=== PATIENT | female | born 1955 | race African-American/Black ===

== ENCOUNTER 2019-01-14 08:15 | Inpatient (IN) ==
[2019-01-14] MEDS ORDERED: DUONEB (A & A) INH ONE (09:38)
[2019-01-14] MEDS ORDERED: LASIX IV ONE (09:38)
[2019-01-14 10:00] LABS: BASO# 0.04 X1000 (0.0-0.2); BASO% 0.3 % (0.0-0.8); EOS# 0.89 X1000 (0.0-0.7); EOS% 7.5 % (0.0-10.0); HEMATOCRIT 46.4 % (37.0-47.0); HEMOGLOBIN 14.8 g/dL (12.0-16.0); IMM GRAN# 0.03 X1000 (0.0-0.04); IMM GRAN% 0.3 % (0.0-0.5); LYMPH% 15.9 % (20.5-51.1); MCHC 31.9 g/dL (33-37); MCV 87.7 FL (81-99); MONO# 0.95 X1000 (0.11-0.59); MPV 11.7 FL (7.4-10.4); NEUT# 8.12 X1000 (1.4-6.5); PLT 261 X1000 (130-400); RBC 5.29 XMIL (4.2-5.4); WBC 11.93 X1000 (4.8-10.8)
--- NOTE | 2019-01-14 10:07 | Diag Imaging Result Doc PS360 ---
CHEST-1 VIEW - 01/14/2019 INDICATION: dyspnea COMPARISON: 07/18/2018 FINDINGS: There is cardiomegaly and pulmonary vascular congestion. There is some hazy interstitial infiltrates centrally compatible with pulmonary edema. No large pleural effusion. IMPRESSION: Cardiomegaly, pulmonary vascular congestion, interstitial pulmonary edema. Electronically signed by Jose Cruz Warren 01/14/2019 10:04 AM
[2019-01-14 10:12] LABS: BE 10.6 mmoll (-2.0-2.0); BLOOD TYPE VENOUS; HCO3-(ACT) 30.5 mmoll (22-27); PO2(98.6) 11 mmHg (30-55); SAMPLE BLOOD; SAO2 15.4 % (40.0-85.0); pH(98.6) 7.31 (7.32-7.43)
[2019-01-14 10:14] LABS: PCO2(98.6) 82 mmHg (40-60)
[2019-01-14 10:22] LABS: AGAP 9; ALB/GLOB RATIO 1.1; ALBUMIN 3.6 g/dL (3.5-5.0); ALKALINE PHOSPHATASE 165 U/L (32-104); BUN 13 mg/dL (8-22); CALCIUM 9.6 mg/dL (8.8-10.2); CHLORIDE 99 mmol/L (98-107); COSMO 284; CREATININE 0.7 mg/dL (0.5-0.9); ESTIMATED GFR > 60; GLUCOSE 183 mg/dL (70-104); GOT 48 U/L (10-30); GPT 47 U/L (10-36); POTASSIUM 4.6 mmol/L (3.5-5.1); SODIUM 140 mmol/L (136-145); TCO2 32 mmol/L (25-35); TOTAL BILIRUBIN 0.95 mg/dL (0.20-1.00); TOTAL PROTEIN 6.9 g/dL (6.3-8.3)
--- NOTE | 2019-01-14 10:59 | EKG Report ---
Test Performed on : 01/14/2019 08:38:54 AM Test Reason : ED. No order in [place] Blood Pressure : / mmHG Vent. Rate : 095 BPM Atrial Rate : 095 BPM P-R Int : 156 ms QRS Dur : 070 ms QT Int : 354 ms P-R-T Axes : 070 079 057 degrees QTc Int : 444 ms Normal sinus rhythm. Possible Left atrial enlargement Nonspecific T wave abnormality Abnormal ECG When compared with ECG of 13-JAN-2019 14:59, No significant change was found Unconfirmed Result
[2019-01-14 12:18] LABS: ALLEN TEST YES; BE 13.5 mmoll (-3.0-3.0); BLOOD TYPE ARTERIAL; HCO3-(ACT) 35.2 mmoll (20.0-26.0); O2(CT) 19.4 mL/dL (15.0-23.0); PO2(98.6) 72 mmHg (60-100); SAMPLE BLOOD; SAO2 96.5 % (95.0-100.0); SRATE 18 BPM; THB 15.5 g/dL (11.5-17.4); pH(98.6) 7.39 (7.35-7.45)
[2019-01-14 12:19] LABS: PCO2(98.6) 70 mmHg (35-45)
[2019-01-14 12:20] LABS: MODALITY BI PAP
--- NOTE | 2019-01-14 12:41 | PROVIDER DOCUMENTATION ---
This chart was entered by Estefania Styles Scribe, acting as scribe for Jerrell Eason DO. HPI-Respiratory General - General Chief Complaint: Shortness of Breath Stated Complaint: SOB,ASTHMA Time Seen by Provider: 01/14/19 08:34 Source: patient Allergies/Adverse Reactions: Patient Allergies Allergy/AdvReac Type Severity Reaction Status Date / Time ibuprofen [From Motrin] Allergy Mild HIVES Verified 01/14/19 08:55 Home Medications: Home Medication List Medication Instructions Recorded Confirmed Last Taken Type Albuterol 2.5MG/Ipratrop 0.5MG 3 ml INH RTQ4H #30 neb 04/24/12 01/14/19 04/21/13 Rx [Duoneb (A & A)] Losartan/Hydrochlorothiazide 1 each PO DAILY 04/24/12 01/14/19 05/17/16 History [Hyzaar 100/25 Tablet] Meloxicam [Mobic] 15 mg PO DAILY 04/24/12 01/14/19 05/17/16 History Metformin [Glucophage] 500 mg PO BID 04/24/12 01/14/19 05/17/16 History Hydrocodone/APAP 10 mg/325 mg 1 - 2 each PO Q4H PRN PRN #0 tablet 05/23/13 01/14/19 05/16/16 Rx [[place]-10] Amitriptyline [Elavil] 25 mg PO DAILY 01/14/19 01/14/19 Unknown History Furosemide [Lasix] 40 mg PO DAILY #7 tab 01/14/19 Unknown Rx Gabapentin 100 mg PO DAILY 01/14/19 01/14/19 Unknown History - History of Present Illness-Resp Nature of Presenting Problem: 63 yobf presents to the ed with c/o sob. pt sts was seen here yesterday to have test ran and was advised by pain clinic to be seen. pt has home o2 and sts uses via NC at 3 or 4 LPM. pt on exam is mild sob, cough and nausea. pt otherwise is nontoxic in appearance Quality of Pain: reports: none Severity in ED: reports: mild Onset/Duration: reports: gradual Timing: reports: still present Context: reports: other (chronic) Cough Quality/Degree: reports: mild, dry cough Episode Frequency: chronic episodes Current Respiratory Medication Therapy: Initiated see nurses note Modifying Factors: improves with: oxygen, sitting upright. worse with: exertion Associated Symptoms: reports: cough, shortness of breath. denies: fever/chills, headache, hurts to breathe, lightheadedness, wheezing Similar Symptoms Previously?: Yes (sob asthma copd) Recently seen or treated by another doctor?: Yes (seen yesterday) Review of Systems - Adult - REVIEW OF SYSTEMS - ADULT Constitutional: denies: chills, fever Eyes: reports: no symptoms reported Ears, Nose, Mouth & Throat: reports: no symptoms reported Cardiovascular: denies: chest pain, palpitations, syncope Respiratory: reports: see HPI, cough, dyspnea on exertion, shortness of breath. denies: wheezing Gastrointestinal: reports: see HPI, nausea. denies: abdominal pain, vomiting Genitourinary: reports: no symptoms reported Musculoskeletal: denies: back pain, neck pain Integumentary: reports: no symptoms reported Neurological: denies: dizziness/vertigo, headache/migraines Psychiatric: reports: no symptoms reported Endocrine: reports: no symptoms reported Hematologic/Lymphatic: reports: no symptoms reported Allergic/Immunologic: reports: no symptoms reported All Other Systems: Reviewed and Negative Past History - Adult - PAST MEDICAL HISTORY-ADULT Review of Records: reports: Old Records Reviewed, Nursing Assessment Review, Medications Reviewed, Social history reviewed & non-contributory. Major Childhood Illnesses: reports: denies history Cardiovascular: reports: HTN Respiratory: reports: asthma, COPD, sleep apnea Gastrointestinal: reports: denies history Obstetrical/Gynecological: reports: denies history Genitourinary: reports: denies history Musculoskeletal: reports: chronic pain Hand Dominance: Right Handed Neurological: reports: denies history Endocrine/Immune: reports: Diabetes Diabetes Type: Type 2 Diabetes controlled by:: PO Meds Other Conditions: reports: denies history - PRIOR SURGERIES/PROCEDURES Surgical/Procedure History: reports: hysterectomy, orthopedic (extremity) - IMMUNIZATION STATUS Childhood Immunizations: See Nurse Assessment Flu Vaccine: See Nurse Assessment - FAMILY HISTORY Family History: reviewed, not pertinent - SOCIAL HISTORY Smoking: quit less than 1 year Substance Use: alcohol Alcohol Use Frequency: occasionally Living Situation: family Physical Exam-General - PHYSICAL EXAM-ADULT Initial Vital Signs Reviewed: Yes - CONSTITUTIONAL General Appearance: appears well, alert, mild distress (pt on O2 @ 2LPM via NC @ 93%), obese - EYES Eyes: PERRL/EOMI, pink conjunctivae - HEAD, EARS, NOSE, MOUTH & THROAT HENMT: moist mucous membranes, dental decay - NECK Neck: non-tender, full range of motion, supple, normal inspection - RESPIRATORY Respiratory: chest non-tender, respiratory distress (mild), crackles (bilateral) , rhonchi (bilateral) - CARDIOVASCULAR Cardiovascular: normal peripheral pulses, tachycardia (118) - GASTROINTESTINAL (ABDOMEN) Abdominal Exam: normal bowel sounds, non tender, soft - LYMPHATIC Lymphatic: no adenopathy - MUSCULOSKELETAL Back Exam: normal inspection, no CVA tenderness, no vertebral tenderness, other (well healed scar on rt anterior knee) Extremity: normal range of motion, non-tender, normal capillary refill, pelvis stable - SKIN Integumentary: normal color, normal turgor, warm/dry - NEUROLOGIC Neurologic: grossly normal - PSYCHIATRIC Psych/Mental Status: normal mood/affect, normal thought content, normal thought process, oriented x 3 Progress - PLAN OF CARE/RESULTS Progress/Plan/Lab Results: Vital Signs - 8 hr 01/14/19 08:28 01/14/19 10:07 01/14/19 11:10 Temperature 98.1 F Pulse Rate 118 H 118 H Respiratory Rate 20 22 Blood Pressure 137/80 O2 Sat by Pulse Oximetry 95 97 01/14/19 13:44 Temperature 98.4 F Pulse Rate 88 Respiratory Rate Blood Pressure 160/93 O2 Sat by Pulse Oximetry 92 L Laboratory Results - last 24 hr 01/14/19 01/14/19 01/14/19 08:41 08:41 08:41 WBC 11.93 H RBC 5.29 Hgb 14.8 Hct 46.4 MCV 87.7 MCH 28.0 MCHC 31.9 L RDW Std Deviation 15.0 H Plt Count 261 MPV 11.7 H Immature Gran % (Auto) 0.3 Neut % (Auto) 68.0 Lymph % (Auto) 15.9 L [place] % (Auto) 8.0 Eos % (Auto) 7.5 Baso % (Auto) 0.3 Immature Gran # (Auto) 0.03 Neut # (Auto) 8.12 H Lymph # (Auto) 1.90 [place] # (Auto) 0.95 H Eos # (Auto) 0.89 H Baso # (Auto) 0.04 Specimen Type Sample Site pH pCO2 pO2 HCO3 Base Excess Oxyhemoglobin ABG O2 Sat (Calculated) ABG O2 Saturation ABG Carboxyhemoglobin ABG Methemoglobin [place] Test VBG pH VBG pCO2 VBG pO2 VBG HCO3 VBG O2 Saturation VBG Base Excess VBG Lactate A-a O2 Difference Total Hemoglobin Lactate Blood Gas Modality Vent Mode Spontaneous Rate FiO2 % Inspiratory BiPAP Expiratory BiPAP Sodium 140 Potassium 4.6 Chloride 99 Carbon Dioxide 32 Anion Gap 9 BUN 13 Creatinine 0.7 Estimated GFR/1.73 m2 > 60 BUN/Creatinine Ratio 19 Glucose 183 H Calculated Osmolality 284 Calcium 9.6 Total Bilirubin 0.95 AST 48 H ALT 47 H Alkaline Phosphatase 165 H Troponin T Blj-D-Twiqfcouzmg Pept 1920 H Total Protein 6.9 Albumin 3.6 Globulin 3.3 Albumin/Globulin Ratio 1.1 01/14/19 01/14/19 01/14/19 08:41 10:04 12:09 WBC RBC Hgb Hct MCV MCH MCHC RDW Std Deviation Plt Count MPV Immature Gran % (Auto) Neut % (Auto) Lymph % (Auto) [place] % (Auto) Eos % (Auto) Baso % (Auto) Immature Gran # (Auto) Neut # (Auto) Lymph # (Auto) [place] # (Auto) Eos # (Auto) Baso # (Auto) Specimen Type VENOUS ARTERIAL Sample Site R RADIAL pH 7.39 pCO2 70 H* pO2 72 HCO3 35.2 H Base Excess 13.5 H Oxyhemoglobin 89.0 L* ABG O2 Sat (Calculated) 19.4 ABG O2 Saturation 96.5 ABG Carboxyhemoglobin 6.90 H* ABG Methemoglobin 1.0 [place] Test YES VBG pH 7.31 L VBG pCO2 82 H* VBG pO2 11 L VBG HCO3 30.5 H VBG O2 Saturation 15.4 L VBG Base Excess 10.6 H VBG Lactate 0.90 A-a O2 Difference 90.0 Total Hemoglobin 15.5 Lactate 0.50 Blood Gas Modality BI PAP Vent Mode BIPAP Spontaneous Rate 18 FiO2 % 35.0 Inspiratory BiPAP 14.0 Expiratory BiPAP 6.0 Sodium Potassium Chloride Carbon Dioxide Anion Gap BUN Creatinine Estimated GFR/1.73 m2 BUN/Creatinine Ratio Glucose Calculated Osmolality Calcium Total Bilirubin AST ALT Alkaline Phosphatase Troponin T < 0.010 Vkp-I-Edmkgrawelw Pept Total Protein Albumin Globulin Albumin/Globulin Ratio Orders Category Date Time Status Admit - [facility] Routine AdmDCTranf 01/14/19 14:18 Active Activity - Up with Assistance ORDERED Care 01/14/19 14:18 Active FSBS/Accucheck Result AC + HS Care 01/14/19 14:18 Active Heart Healthy Diet Diet 01/14/19 14:18 Active CHEST-1 VIEW [RAD] Stat Exams 01/14/19 09:38 Completed ABG [RESP] Routine Lab 01/14/19 12:09 Completed BLOOD CULTURE [BLDCUL] Stat Lab 01/14/19 09:08 Results CBC WITH DIFF [HEME] Stat Lab 01/14/19 08:41 Completed COMPREHENSIVE METABOLIC PANEL [CHEM] Stat Lab 01/14/19 08:41 Completed LACTATE, PLASMA [CHEM] Stat Lab 01/14/19 14:58 Received PRO B-NATRIURETIC PEPTIDE Stat Lab 01/14/19 08:41 Completed SPUTUM CULTURE WITH GRAM STAIN [RM] Routine Lab 01/14/19 14:18 Uncollected TROPONIN T Stat Lab 01/14/19 08:41 Completed URINALYSIS W/POSS RFLX CULT [URINALYSIS] Stat Lab 01/14/19 14:36 Completed VENOUS BLOOD GAS [RESP] Routine Lab 01/14/19 10:04 Completed Albuterol 2.5MG/Ipratrop 0.5MG [Duoneb (A & A)] Med 01/14/19 09:38 Di scontinued 3 ml INH NOW ONE Amitriptyline [Elavil] Med 01/14/19 21:00 Active 25 mg PO HS Budesonide [Pulmicort] Med 01/14/19 19:30 Active 0.5 mg INH RTBID CefTRIAXONE [Rocephin] 2 gm Med 01/14/19 13:45 Active 0.9% Sodium Chloride Inj [Ns] 50 ml IV Q24H Enoxaparin [Lovenox] Med 01/15/19 09:00 Active 40 mg SUBQ Q24H Furosemide [Lasix] Med 01/14/19 21:00 Active 40 mg IV BID Furosemide [Lasix] Med 01/14/19 09:38 Discontinued 40 mg IV NOW ONE Gabapentin [Neurontin] Med 01/14/19 21:00 Active 100 mg PO HS Hydrocodone/APAP 10 mg/325 mg [[place]-10] Med 01/14/19 14:21 Active 1 each PO Q4H PRN PRN Insulin Human Regular [Humulin R] Med 01/14/19 16:00 Active See Protocol SUBQ 0700,1100,1600,2100 Ipratropium [place] Neb [Atrovent Neb] Med 01/14/19 15:30 Active 0.5 mg INH RTQ4H Levalbuterol Neb [Xopenex Neb] Med 01/14/19 15:30 Active 1.25 mg INH RTQ4H Losartan/Hctz [Hyzaar 50/12.5 mg] Med 01/15/19 09:00 Active 2 each PO DAILY Meloxicam [Mobic] Med 01/15/19 09:00 Active 15 mg PO DAILY Methylprednisolone Sod Succ [Solu-Medrol] Med 01/14/19 13:43 Discontinued 125 mg IV NOW ONE Methylprednisolone Sod Succ [Solu-Medrol] Med 01/14/19 21:00 Active 40 mg IV Q12H Aerosol Treatments Routine Ot 01/14/19 09:39 Completed Aerosol Treatments Routine Ot 01/14/19 14:18 Active Aerosol Treatments Stat Ot 01/14/19 09:39 Completed BIPAP Stat Ot 01/14/19 10:32 Active Incentive Spirometer Q4HR.AWAKE Ot 01/14/19 17:00 Ordered Incentive Spirometer Q4HR.AWAKE Ot 01/14/19 21:00 Ordered Incentive Spirometer Q4HR.AWAKE Ot 01/15/19 01:00 Ordered Incentive Spirometer Q4HR.AWAKE Ot 01/15/19 05:00 Ordered Incentive Spirometer Q4HR.AWAKE Ot 01/15/19 09:00 Ordered Incentive Spirometer Q4HR.AWAKE Ot 01/15/19 13:00 Ordered Oxygen Device Routine Ot 01/14/19 14:18 Active Peak Flow BID Ot 01/14/19 21:00 Ordered Peak Flow BID [facility] 01/15/19 09:00 Ordered Pulse Oximetry Routine Ot 01/14/19 14:18 Active EKG [EKG] Stat Ther 01/14/19 08:38 Draft Transfer/Admit Order [TRANSFER] Routine Transfer 01/14/19 14:[address] eason has went multiple times to pt and spoke with her the importance of her being admitted. pt repeatedly denied admission even while pt was on bipap. dr eason tried to call pcp to speak with her but office was closed for lunch and did not return his call. dr eason returned to room and explained the last time if pt went home she may not be able to maintain her oxygen level to sustain life and the charge nurse also went in and spoke with the pt. after much back and forth pt agreed to be admitted to hospitalist service. pt has had miultiple breathing tx and bipap and still has some respiratory distress Result Diagrams: 01/14/19 08:41 01/14/19 08:41 - REASSESSMENT Reassessment #1 Time Reassessed: 10:10 (pt still on o2 and sts feels sob) Status: unchanged Reassessment Comment: at bedside Reassessment #2 Time Reassessed: 11:08 (pt is a/o x4 and sts improving. pt declines in house admit ) Status: improving Reassessment #3 Time Reassessed: 12:21 (pt still declines to be admitted and is still on bipap) Status: unchanged Reassessment Comment: at [facility] Reassessment #4 Time Reassessed: 12:35 ( at bedside) Status: unchanged Reassessment Comment: pt still refused admitting Reassessment #5 Time Reassessed: 13:38 (crackles have improved) Status: improving Reassessment Comment: pt accepts admitting - EKG 1 Time of EKG reading by physician:: 08:38 EKG Read and Signed by:: Jerrell Eason EKG Interpretation (*Must complete 3 of following elements*): Normal Rate: 95 Rhythm: nsr [place]: normal QRS: normal [place] Interval: normal ST Wave: normal - XRAY 1 XRAY: Bilateral XRAY Study: Chest Impression: See EMR Report (CHEST-1 VIEW - 01/14/2019 INDICATION: dyspnea COMPARISON: 07/18/2018 FINDINGS: There is cardiomegaly and pulmonary vascular congestion. There is some hazy interstitial infiltrates centrally compatible with pulmonary edema. No large pleural effusion. IMPRESSION: Cardiomegaly, pulmonary vascular congestion, interstitial pulmonary edema. Electronically signed by Jose Cruz Warren 01/14/2019 10:04 AM 01/14/19 1004 Interpreting Physician: Jose Cruz Warren MD Dictated Date/Time: 01/14/19 1003 cc: Jerrell Eason DO; Sona Montez) - CONSULTS/PCP/HOSPITALIST Notification #1 *Consult/PCP/Hospitalist*: dr montez pcp Time Discussed: 13:01 Reason/Comments: will not return from lunch till 1330 #2 Consult: hospitalist dr mahmood Time Discussed: 13:37 (spoke with kevin) Consult Disposition: Admit #3 Consult: dr montez pcp Time Discussed: 13:42 Reason/Comments: returned call Consult Disposition: other (phone consult) Departure - Departure Date of Disposition Decision: 01/14/19 Time of Disposition Decision: 12:35 DIAGNOSIS: SOB (shortness of breath), Wheezing, Hypoxia CHF exacerbation Qualifiers: Heart failure type: unspecified Qualified Code(s): I50.9 - Heart failure, unspecified Disposition: ADMITTED INPATIENT 09 Certified Medical Emergency: Emergent Condition: Stable - Critical Care Note This patient required my direct & personal management of CC.: Yes Total Time (mins): 48 Critical Care Statement: This patient required my direct personal management to treat or rule out processes, the absence of which, could potentiallly result in sudden, clinically significant life or limb threatening deterioration. Attestation - Physician/ ANY Attestation Patient care was provided by Advanced Practice Provider:: No The physician spent face to face time with patient:: Yes Advanced Practice Provider documentation review:: Supervising physician onsite and consulted in the evaluation and care of this patient. The physician did have a face to face encounter with the patient. This chart was documented by the indicated scribe, (Estefania Styles Scribe) and accurately reflects the services I performed and decisions made by me, Jerrell Eason DO, as attested by the provider's signature.
[2019-01-14] MEDS ORDERED: SOLU-MEDROL IV ONE (13:43)
[2019-01-14] MEDS ORDERED: NORCO-10 PO PRN (14:21)
[2019-01-14 14:42] LABS: URINE SOURCE CATH
[2019-01-14 14:46] LABS: BILIRUBIN URINE NEGATIVE (NEGATIVE); BLOOD URINE NEGATIVE (NEGATIVE); COLOR STRAW; GLUCOSE URINE NEGATIVE (NEGATIVE); KETONE URINE NEGATIVE (NEGATIVE); LEUKOCYTES URINE NEGATIVE (NEGATIVE); NITRITE URINE NEGATIVE (NEGATIVE); PH URINE 6.5; PROTEIN URINE 50 mg/dL (NEGATIVE); SP GRAVITY URINE 1.007; TURBIDITY URINE CLEAR (CLEAR); UR EPITHELIAL CELLS <10 /HPF (<10); URINE BACTERIA NEGATIVE /HPF; URINE RBC <10 /HPF (<10); URINE WBC <10 /HPF (<10); UROBILINOGEN URINE NORMAL (NORMAL)
[2019-01-14] MEDS: ROCEPHIN 2 GM in NS 50 ML IV SCH (14:51)
--- NOTE | 2019-01-14 15:17 | HISTORY AND PHYSICAL ---
PRIMARY CARE PROVIDERS: EAGLE Guzmán Patient used to see Dr. Stevens but does not see him anymore. PRIMARY OXYGEN EQUIPMENT PREPARER: Claire Lorenzo MD PRIMARY SEWAGE RETICULATION DRAFTING OFFICER: Tom Cao MD CHIEF COMPLAINT: Shortness of breath. HISTORY OF PRESENT ILLNESS: Ms. Mónica Flores is a 63-year-old female with medical history of COPD, who is supposed to wear continuous 3-4 L of oxygen. Also has a history of obstructive sleep apnea. She wears her oxygen at night with her CPAP. History of diabetes, hypertension, GERD, congestive heart failure and most recently had an echocardiogram in July of this year that showed severe pulmonary artery hypertension with a systolic pressure of 84 mmHg. She claims that they have not started her on any medications for the pulmonary artery hypertension. She states that over the last 1 to 2 weeks she has had worsening shortness of breath, cough with phlegm that is yellow in color. Denies any fever, having to sleep with short 3 to 4 pillows at night. Having more swelling in her lower extremities. All this worsened last night and she decided to come to the emergency department today. Apparently, she also saw her primary care provider but it was with EAGLE Salazar, this last time who did some lab work and sent her for some tests. One was an EKG which showed sinus rhythm. The other one was a head CT, which was just mild chronic appearing microvascular ischemic changes. She presents with complaints of shortness of breath. Chest x-ray reveals cardiomegaly, pulmonary vascular congestion and interstitial pulmonary edema. She received Lasix in the ER, breathing treatments and BiPAP, which improved her respiratory status. It appears that she has a COPD exacerbation on top of severe pulmonary artery hypertension and fluid in the lungs so will admit for further treatment. PAST MEDICAL HISTORY: 1. COPD. Supposed to be 3 to 4 L continuous oxygen but only wears it at night with her CPAP. 2. Obstructive sleep apnea with nightly CPAP. 3. Diabetes mellitus type 2. 4. Hypertension. 5. Peptic ulcer disease and GERD. 6. Restless legs syndrome. 7. Insomnia number. 8. States she has congestive heart failure with a normally preserved ejection fraction but actually has severe pulmonary artery hypertension with a systolic pressure of 84 mmHg. 9. Morbid obesity with a BMI of 38.4. SURGICAL HISTORY: 1. Right knee replaced. 2. Partial hysterectomy. 3. Rotator cuff repair on the right. SOCIAL HISTORY: Matt is at the bed side. She has 3 children that she has custody of. She works at the [employer], lives in [place]. Denies alcohol. Smokes half pack per day or less since age of 16, denies any illicit drug use. FAMILY HISTORY: Father of unknown cancer. Mother at age 97 of a stroke. One sister of a brain tumor. Another sister had diabetes. ALLERGIES: Ibuprofen. HOME MEDICATIONS: 1. Elavil 25 mg p.o. daily. 2. Neurontin 100 mg p.o. daily. 3. Glucophage 500 mg p.o. twice daily. 4. Hyzaar 100/25 1 tablet p.o. daily. 5. Mobic 15 mg p.o. daily. 6. Albuterol Atrovent nebulized every 4 hours. 7. Lasix 40 mg p.o. daily. 8. [place] 10s 1-2 tabs p.o. every 4 hours p.r.n. REVIEW OF SYSTEMS: Fourteen point review of systems are complete and all were negative except for those mentioned above in the HPI. PHYSICAL EXAMINATION: VITAL SIGNS: Temperature 98.4 degrees, heart rate 88, respiratory rate 22, blood pressure 160/93. O2 saturation 92% on 3 L nasal cannula. 5 feet 4 inches tall, 224 pounds. BMI 38.4. GENERAL: Ms. Mónica Flores is a 63-year-old female. She is in no acute distress. She is able to answer questions appropriately. HEENT: Atraumatic, normocephalic. Pupils equal, round, reactive to light. Extraocular movements intact. Mucous membranes moist. NECK: Trachea midline. CARDIOVASCULAR: S1, S2. Tachycardic rate and rhythm. No rubs, gallops, murmurs. 1+ lower extremity edema. 2+ dorsalis pedal and radial pulses. Negative for JVD or carotid bruits. PULMONARY: Clear to auscultate. Decreased in the bases. No accessory muscle use or work of breathing noted. Currently tolerating 3 L nasal cannula. GASTROINTESTINAL: Abdomen is soft, nontender, nondistended. Positive bowel sounds x4. EXTREMITIES: Moves all extremities equally. Full range of motion. NEUROLOGIC: A and O x3. Follows commands. Sensory is intact. SKIN: Warm, dry, intact. LABORATORY DATA: White blood cells 11,000. Hemoglobin 14, hematocrit 46, platelet count 261,000. ABGs pH 7.39, pCO2 70, PO2 72, bicarbonate 35. Base excess 13. Saturation 89%. Carboxyhemoglobin 6.9. lactate 0.5, that was on BiPAP. She is currently on nasal cannula. Sodium 140, potassium 4.6, BUN 13, creatinine 0.7, glucose 183 ,calcium 9.6, bilirubin 0.95, AST 48, ALT 47, troponin less than 0.01. ProBNP 1920, albumin 3.6. IMAGING: Head CT yesterday, this was an outpatient head CT, mild chronic appearing microvascular ischemia of the cerebral white matter. Chest x-ray: Cardiomegaly, pulmonary vascular congestion, interstitial pulmonary edema. EKG normal sinus rhythm, rate 95, QTc is 444. ASSESSMENT/PLAN: 1. Chronic obstructive pulmonary disease exacerbation acute on chronic respiratory failure. Wears continuous oxygen at home. She is back down to 3 L nasal cannula while she is here. Apparently, she cannot afford her oxygen during the day. She wears at night with her CPAP. We started, her on IV steroids, nebulizers and IV antibiotic, Rocephin. 2. Obstructive sleep apnea. We will continue her CPAP at night and her BiPAP at night. 3. Severe pulmonary artery hypertension. This is likely what is causing the proBNP to be elevated. She is not on any home medications for this. Not on Lasix either. Really not sure she is she is even compliant with medications but she got a 40 mg IV Lasix dose and will continue that twice a day. We could consider adding an isosorbide but again I am really not sure she is going to be compliant. 4. Diabetes mellitus type 2. We will do pattern blood glucoses and sliding scale insulin. 5. Hypertension. Continue home medication regimen. 6. Gastroesophageal reflux disease. 7. Leukocytosis, could be a pneumonia the chest x-ray is not picking up, could just be inflammatory, but she will be on Rocephin. 8. Deep venous thrombosis prophylaxis, Lovenox. Dictated by EAGLE Hopson for Rodolfo Mike MD cc: EAGLE Hopson MD Johnna Langford, CRNP Mamoun I. Bj, MD Tom K. Kiley, MD I agree with most components of history, physical, assessment and plan. A separate addendum has been dictated. MTDD
[2019-01-14] MEDS ORDERED: PRILOSEC PO ONE (15:26)
[2019-01-14] MEDS: XOPENEX NEB INH SCH ×3 (15:32→23:26)
[2019-01-14] MEDS: ATROVENT NEB INH SCH ×3 (15:32→23:26)
--- NOTE | 2019-01-14 15:52 | HISTORY AND PHYSICAL ---
ADDENDUM: I agree with most components of history, physical, assessment and plan. In brief, Ms. Flores is 63 years old woman with past medical history of active tobacco abuse, essential hypertension, diabetes mellitus, COPD on home 3 L oxygen, severe pulmonary hypertension, obstructive sleep apnea on home CPAP, who comes in with chief complaints of shortness of breath of about 7 days, and cough of about 7 days duration. Apparently, patient had what appears to be syncopal episode when she had seen her regular doctor. She got a CT scan of head yesterday which was unremarkable. The circumstances of syncope at home were not clear since the patient does not provide reliable consistent history saying that she does not remember. However, her shortness of breath and orthopnea did not improve, and that is why she decided to come to the hospital. Currently, patient is feeling slightly better than she did before. She is eating, and she is also coughing. During my encounter, patient's family is at bedside. VITAL SIGNS: Temperature 98.4 degrees, pulse 88, respiratory 22, and blood pressure 160/90. She is saturating 93% on 3 L nasal cannula at the moment. PHYSICAL EXAMINATION: Oral cavity is moist. She has end-expiratory wheezes bilateral lung childers with inspiratory crackles bilateral infrascapular region. S1 is normal. Prominent S2. No murmur, rub, or gallop. Abdomen is obese, soft, and nontender. Bilateral lower extremity edema extending up to mid [place] levels. LABORATORY: Suggestive of mild leukocytosis. She does appear hypercapnia. Normal kidney function. Mild transaminitis and slightly elevated proBNP. MICROBIOLOGY: Blood culture in lab sputum. Culture has not been collected. ASSESSMENT AND PLAN: 1. Acute hypoxic and hypercapnic respiratory failure on chronic hypoxic hypercapnic respiratory failure due to acute bronchitis leading to COPD exacerbation. Also, acute pulmonary edema. Continue oxygenation. Continue to cycle BiPAP, and oxygen to nasal cannula, albuterol ipratropium nebulization, intravenous Lasix, intravenous antibiotics, and intravenous steroids. The patient was counseled about quitting smoking and being compliant with oxygen as well as a CPAP. 2. Others: Continue [place] for chronic pain with amitriptyline; losartan hydrochlorothiazide for essential hypertension; meloxicam for pain; proton pump inhibitors for GI prophylaxis, enoxaparin for DVT prophylaxis. 3. Disposition: I had extensive discussion with the patient and her family members at bedside about her tenuous clinical condition. I explained to them about severe pulmonary hypertension, and how it could be detrimental and potentially lethal to her health. They understood it. I will monitor patient in [facility]. cc: Rodolfo Mike MD MTDD
[2019-01-14] MEDS: HUMULIN R SUBQ SCH ×2 (16:04→20:06)
[2019-01-14] MEDS: PULMICORT INH SCH (19:13)
[2019-01-14] MEDS: LASIX IV SCH (20:06)
[2019-01-14] MEDS: ELAVIL PO SCH (20:06)
[2019-01-14] MEDS: NEURONTIN PO SCH (20:06)
[2019-01-14] MEDS: SOLU-MEDROL IV SCH (20:06)
[2019-01-14] MEDS ORDERED: PERIDEX MT SCH (21:00)
[2019-01-15] MEDS: ATROVENT NEB INH SCH ×6 (03:35→23:35)
[2019-01-15] MEDS: XOPENEX NEB INH SCH ×6 (03:36→23:35)
[2019-01-15 04:19] LABS: HEMOGLOBIN A1C 7.2 % (4.8-6.0)
[2019-01-15 04:20] LABS: AGAP 9; ALB/GLOB RATIO 0.8; ALBUMIN 3.3 g/dL (3.5-5.0); ALKALINE PHOSPHATASE 145 U/L (32-104); BUN 15 mg/dL (8-22); CALCIUM 9.6 mg/dL (8.8-10.2); CHLORIDE 97 mmol/L (98-107); COSMO 294; CREATININE 0.9 mg/dL (0.5-0.9); ESTIMATED GFR > 60; GLUCOSE 242 mg/dL (70-104); GOT 22 U/L (10-30); GPT 35 U/L (10-36); POTASSIUM 4.2 mmol/L (3.5-5.1); SODIUM 143 mmol/L (136-145); TCO2 37 mmol/L (25-35); TOTAL BILIRUBIN 0.57 mg/dL (0.20-1.00); TOTAL PROTEIN 7.4 g/dL (6.3-8.3)
[2019-01-15 04:21] LABS: BASO# 0.02 X1000 (0.0-0.2); BASO% 0.1 % (0.0-0.8); HEMATOCRIT 47.1 % (37.0-47.0); HEMOGLOBIN 15.4 g/dL (12.0-16.0); IMM GRAN# 0.07 X1000 (0.0-0.04); IMM GRAN% 0.5 % (0.0-0.5); LYMPH# 0.87 X1000 (1.2-3.4); LYMPH% 6.3 % (20.5-51.1); MCH 28.3 PG (27-31); MCHC 32.7 g/dL (33-37); MCV 86.6 FL (81-99); MONO# 0.33 X1000 (0.11-0.59); MONO% 2.4 % (1.7-9.3); MPV 11.3 FL (7.4-10.4); NEUT# 12.58 X1000 (1.4-6.5); NEUT% 90.7 % (42.2-75.2); PLT 239 X1000 (130-400); RBC 5.44 XMIL (4.2-5.4); RDW 14.9 % (11.5-14.5); WBC 13.87 X1000 (4.8-10.8)
[2019-01-15 04:26] LABS: FREE T4 0.97 ng/dL (0.93-1.70); TSH 0.51 uIUmL (0.27-4.20)
[2019-01-15 04:48] LABS: ALLEN TEST YES; BE 13.9 mmoll (-3.0-3.0); BLOOD TYPE ARTERIAL; HCO3-(ACT) 35.6 mmoll (20.0-26.0); METHB 0.9 % (0.0-1.5); O2(CT) 20.7 mL/dL (15.0-23.0); O2HB 92.5 % (95.0-99.0); PO2(98.6) 76 mmHg (60-100); SAMPLE BLOOD; SAO2 96.6 % (95.0-100.0); THB 15.9 g/dL (11.5-17.4)
[2019-01-15 04:53] LABS: MODALITY BI PAP; PCO2(98.6) 69 mmHg (35-45)
[2019-01-15] MEDS: HUMULIN R SUBQ SCH ×4 (06:06→21:28)
[2019-01-15] MEDS: PRILOSEC PO SCH (06:07)
[2019-01-15] MEDS: PULMICORT INH SCH ×2 (07:48→20:19)
[2019-01-15] MEDS: LASIX IV SCH ×2 (08:09→21:28)
[2019-01-15] MEDS: LOVENOX SUBQ SCH ×2 (08:09→08:13)
[2019-01-15] MEDS: SOLU-MEDROL IV SCH (08:09)
[2019-01-15] MEDS: MOBIC PO SCH (08:09)
[2019-01-15] MEDS: HYZAAR 50/12.5 MG PO SCH (08:11)
--- NOTE | 2019-01-15 09:08 | Diag Imaging Result Doc PS360 ---
CHEST-2 VIEWS - 01/15/2019 INDICATION: short of breath COMPARISON: 01/14/2019 FINDINGS: Stable cardiomegaly and pulmonary vascular congestion. There is grossly stable finding interstitial edema diffusely and bilaterally compatible with mild pulmonary edema. No pneumothorax or large pleural effusion. IMPRESSION: No change from prior. Electronically signed by Jose Cruz Warren 01/15/2019 9:05 AM
--- NOTE | 2019-01-15 12:08 | PROGRESS NOTE ---
DATE: 01/15/2019 INTERVAL HISTORY: No acute events overnight. She has been tolerating BiPAP well. She has been making a lot of urine, however, the input and output have not been charted appropriately. She states that her CPAP machine has not been functioning fine. I told her that I would discuss this with her outpatient lung doctor, Dr. Lorenzo. As per my discussion, she needs to go and see him in his outpatient setting. She is no longer wheezing. VITALS: Currently, temperature 97.2 degrees, pulse 93, respiratory 15, and blood pressure 130/74. She is saturating 93% on 2 to 3 L nasal cannula. PHYSICAL EXAMINATION: Morbidly obese not in any acute distress. Oral cavity is moist. Decreased end-expiratory wheezes as compared to my yesterday's examination bilateral lung childers. Mild inspiratory crackles infrascapular region. S1 is normal. S2 is prominent. No murmur, rub, or gallop. Abdomen is obese, soft, and nontender. Decreased bilateral lower extremity edema extending up to midsh[place] level. She is alert and oriented x3. LABORATORY: Labs are suggestive of mild leukocytosis with 0% eosinophil count. Normal hemoglobin and platelet count. ABG suggestive of hypercarbia, but it is compensated on BiPAP. Her kidney function is normal. She does appear to have hyperglycemia. She is on sliding scale insulin. Chest x-ray performed today morning suggests mild improvement in bilateral pulmonary edema. ASSESSMENT AND PLAN: 1. Acute hypoxic hypercapnic respiratory failure on chronic hypoxic hypercapnic respiratory failure due to acute bronchitis leading to COPD exacerbation, and acute pulmonary edema in the setting of pulmonary hypertension, and possibly in noncompliance with home oxygen and CPAP machine. Continue to cycle nighttime BiPAP and nasal cannula during daytime. Continue current dose of intravenous Lasix, intravenous steroids, intravenous antibiotics ceftriaxone as well as azithromycin. Follow up final blood culture, sputum culture and urine antigen. I advised her to have outpatient pulmonology follow-up. 2. Others: Continue [place] for chronic pain with amitriptyline; losartan and hydrochlorothiazide for essential hypertension; meloxicam for pain; proton pump inhibitors for GI prophylaxis; enoxaparin for deep venous thrombosis prophylaxis; sliding scale insulin for steroid-induced hyperglycemia on top of [id number] diabetes mellitus. DISPOSITION: Will continue to monitor patient in [facility]. Plan of care discussed with the patient and her daughter at bedside. All of their questions have been satisfactorily answered. cc: Rodolfo Mike MD
[2019-01-15] MEDS: ROCEPHIN 2 GM in NS 50 ML IV SCH (14:21)
[2019-01-15] MEDS: ZITHROMAX PO SCH (14:21)
[2019-01-15] MEDS: NEURONTIN PO SCH (21:28)
[2019-01-15] MEDS: ELAVIL PO SCH (21:28)
[2019-01-16] MEDS: XOPENEX NEB INH SCH ×3 (03:14→11:04)
[2019-01-16] MEDS: ATROVENT NEB INH SCH ×3 (03:14→11:04)
[2019-01-16] MEDS ORDERED: SOLU-MEDROL IV SCH (06:00)
[2019-01-16] MEDS: PRILOSEC PO SCH (06:16)
[2019-01-16] MEDS: HUMULIN R SUBQ SCH ×2 (06:16→11:47)
[2019-01-16 07:09] LABS: BASO# 0.03 X1000 (0.0-0.2); BASO% 0.2 % (0.0-0.8); EOS# 0.14 X1000 (0.0-0.7); EOS% 0.8 % (0.0-10.0); HEMATOCRIT 47.8 % (37.0-47.0); HEMOGLOBIN 15.2 g/dL (12.0-16.0); IMM GRAN# 0.05 X1000 (0.0-0.04); IMM GRAN% 0.3 % (0.0-0.5); LYMPH% 14.8 % (20.5-51.1); MCH 27.9 PG (27-31); MCHC 31.8 g/dL (33-37); MCV 87.9 FL (81-99); MONO# 1.54 X1000 (0.11-0.59); MONO% 9.1 % (1.7-9.3); MPV 11.6 FL (7.4-10.4); NEUT% 74.8 % (42.2-75.2); PLT 264 X1000 (130-400); RBC 5.44 XMIL (4.2-5.4); RDW 15.1 % (11.5-14.5); WBC 16.86 X1000 (4.8-10.8)
[2019-01-16 07:34] LABS: AGAP 10; BUN 28 mg/dL (8-22); CALCIUM 9.6 mg/dL (8.8-10.2); CHLORIDE 94 mmol/L (98-107); COSMO 291; ESTIMATED GFR > 60; GLUCOSE 137 mg/dL (70-104); MAGNESIUM 1.9 mg/dL (1.5-2.7); SODIUM 142 mmol/L (136-145); TCO2 38 mmol/L (25-35)
[2019-01-16 07:46] VITALS: BP 148/76
[2019-01-16] MEDS: PULMICORT INH SCH (08:02)
[2019-01-16] MEDS ORDERED: CEFTIN PO SCH (09:00)
[2019-01-16] MEDS ORDERED: LASIX PO SCH (09:00)
[2019-01-16] MEDS: MOBIC PO SCH (09:10)
[2019-01-16] MEDS: LOVENOX SUBQ SCH (09:10)
[2019-01-16] MEDS: ZITHROMAX PO SCH (09:11)
[2019-01-16] MEDS: HYZAAR 50/12.5 MG PO SCH (09:13)
--- NOTE | 2019-01-16 11:30 | DISCHARGE SUMMARY ---
ADMISSION DATE: 01/14/2019 DISCHARGE DATE: 01/16/2019 DISCHARGE DISPOSITION: Home with home oxygen. DISCHARGE CONDITION: Hemodynamically stable. She is denying any chest pain. Her shortness of breath is significantly improved. She is still coughing up whitish sputum. However, sputum culture has not shown any growth. She is provided a BMP lab slip and outpatient pulmonology follow-up. DISCHARGE DIAGNOSES: 1. Acute hypoxic hypercapnic respiratory failure. 2. Acute chronic obstructive pulmonary disease exacerbation due to acute bronchitis. 3. Acute pulmonary edema. 4. Severe pulmonary hypertension. OTHER DIAGNOSES: 1. Chronic pain. 2. History of chronic obstructive pulmonary disease and active tobacco abuse. 3. Chronic hypoxic respiratory failure. 4. Obstructive sleep apnea on home CPAP. 5. Non insulin-dependent diabetes mellitus. 6. Essential hypertension. 7. Chronic pain. DISCHARGE MEDICATIONS: BMP lab slip has been provided to assess her kidney function 5 days after discharge. 1. Amitriptyline 25 mg daily. 2. Gabapentin 100 mg t.i.d. 3. Metformin 500 mg b.i.d. 4. Losartan hydrochlorothiazide 1 tablet daily. 5. Meloxicam 15 mg daily. 6. Cefuroxime 500 mg every 12 hours for 4 days. 7. Albuterol ipratropium nebulization 3 mL inhaled every 4 hours. 8. Furosemide 20 mg daily 5 tablets. 9. [place] 10 1 to 2 tablets every 4 hours as needed for pain. 10. Prednisone 40 mg daily for 3 days. 11. Azithromycin 500 mg daily for 3 days. LABORATORY: Labs at the time [place] hospital [place] [address], hemoglobin 15.2, and platelet count 264,000. Eosinophil count 0.8%, BUN 28, creatinine 1, blood sugar 160, and magnesium 1.9. Significant microbiology at the time of discharge, blood culture and sputum culture have not shown any growth. SIGNIFICANT IMAGING DURING HOSPITAL ADMISSION: Discharge on 01/14, she had cardiomegaly, pulmonary vascular congestion, and interstitial pulmonary edema. HOSPITAL COURSE SUMMARY: Ms. Flores is a 63 year old lady with past medical history of chronic hypoxic respiratory failure due to COPD and severe pulmonary hypertension, who presented on 01/14/2019 with chief complaints of shortness of breath of about 7 days duration along with productive cough. It was unclear due to poor history if she was very compliant with her home oxygen or home CPAP. Apparently, because of low oxygen, she also had a syncopal episode 3 days prior to presentation, and her outpatient provider had performed CT scan of the head, which was unremarkable. Her shortness of breath did not get better, and that is why she presented to the emergency room. She was found to be hypoxic on admission, and was started on BiPAP. She was started on intravenous antibiotics, intravenous steroids, and intravenous diuretic for pulmonary edema for chronic obstructive pulmonary disease exacerbation due to acute bronchitis. With intravenous antibiotics, steroids and Lasix, her shortness of breath improved. She was continued on nighttime BiPAP and daytime nasal cannula oxygen, which she was tolerating well. At the time of discharge, she was feeling significantly better and wanted to go home. Her antibiotics were changed to oral. Sputum culture has not shown any growth to date, and her Lasix was changed to oral as well. She was advised to have outpatient followup with Dr. Lorenzo. She was also advised to bring her CPAP machine when seeing blender/braze applicator as an outpatient as she had some concerns about possible malfunction. More than 30 minutes were spent in discharging the patient. All of her questions were satisfactorily answered. cc: Rodolfo Mike MD MTDD
[2019-01-17] MEDS ORDERED: PREDNISONE PO SCH (09:00)
== END 2019-01-16 13:56 | disposition home or self-care (01) | DRG 190 ==
LOC: ED 08:15 → 3S 14:35 → 2N 01-15 12:14
PROVIDERS: ATTEND Internal Medicine

== ENCOUNTER 2019-03-14 15:27 | Inpatient (IN) ==
[2019-03-14] MEDS ORDERED: DUONEB (A & A) INH ONE ×2 (16:04→16:31)
[2019-03-14 16:12] LABS: BASO# 0.02 X1000 (0.0-0.2); BASO% 0.2 % (0.0-0.8); EOS# 0.37 X1000 (0.0-0.7); EOS% 3.8 % (0.0-10.0); HEMATOCRIT 46.1 % (37.0-47.0); HEMOGLOBIN 14.3 g/dL (12.0-16.0); IMM GRAN# 0.04 X1000 (0.0-0.04); IMM GRAN% 0.4 % (0.0-0.5); LYMPH# 1.88 X1000 (1.2-3.4); LYMPH% 19.3 % (20.5-51.1); MCH 27.3 PG (27-31); MCV 88.1 FL (81-99); MONO# 1.41 X1000 (0.11-0.59); MONO% 14.5 % (1.7-9.3); MPV 11.6 FL (7.4-10.4); NEUT# 6.02 X1000 (1.4-6.5); NEUT% 61.8 % (42.2-75.2); PLT 258 X1000 (130-400); RBC 5.23 XMIL (4.2-5.4); RDW 15.3 % (11.5-14.5); WBC 9.74 X1000 (4.8-10.8)
[2019-03-14 16:15] LABS: INR 0.95; PROTIME 13.2 Seconds (11.0-16.0)
[2019-03-14 16:16] LABS: BE 9.8 mmoll (-3.0-3.0); BLOOD TYPE ARTERIAL; HCO3-(ACT) 32.1 mmoll (20.0-26.0); O2(CT) 16.6 mL/dL (15.0-23.0); SAMPLE BLOOD; SAO2 83.9 % (95.0-100.0); THB 14.8 g/dL (11.5-17.4); pH(98.6) 7.39 (7.35-7.45)
[2019-03-14 16:16] LABS: PTT 29.2 Seconds (22.3-41.8)
[2019-03-14 16:22] LABS: AGAP 12; ALBUMIN 3.5 g/dL (3.5-5.0); ALKALINE PHOSPHATASE 191 U/L (32-104); BUN 10 mg/dL (8-22); CALCIUM 9.3 mg/dL (8.8-10.2); CHLORIDE 98 mmol/L (98-107); COSMO 287; CREATININE 0.8 mg/dL (0.5-0.9); ESTIMATED GFR > 60; GLUCOSE 126 mg/dL (70-104); GOT 28 U/L (10-30); GPT 29 U/L (10-36); POTASSIUM 3.8 mmol/L (3.5-5.1); SODIUM 144 mmol/L (136-145); TCO2 35 mmol/L (25-35); TOTAL PROTEIN 7.2 g/dL (6.3-8.3)
[2019-03-14 16:22] LABS: PCO2(98.6) 62 mmHg (35-45); PO2(98.6) 43 mmHg (60-100)
[2019-03-14 16:23] LABS: ALLEN TEST YES; MODALITY ROOM AIR; O2HB 80.1 % (95.0-99.0)
[2019-03-14 16:24] LABS: CK PROFILE 369 U/L (24-173)
[2019-03-14 16:58] LABS: CK INDEX 2.2 (0.0-2.5); CK-MB 8.04 ng/mL (0.0-5.0)
--- NOTE | 2019-03-14 17:14 | Diag Imaging Result Doc PS360 ---
EXAM: CHEST-2 VIEWS INDICATION: sob TECHNIQUE: 2 views COMPARISON: 03/12/2019 FINDINGS: No new consolidations are appreciated. The lungs appear to be grossly clear. There is no discrete pleural fluid collection or pneumothorax. The cardiac silhouette is mildly prominent but stable. Central vasculature is perhaps mildly prominent suggesting possible mild pulmonary venous congestion. IMPRESSION: Possible mild pulmonary venous congestion. Electronically signed by Efrain Jason 03/14/2019 5:11 PM
--- NOTE | 2019-03-14 17:16 | HISTORY AND PHYSICAL ---
ADDENDUM TO HISTORY AND PHYSICAL: CHIEF COMPLAINT: Shortness of breath for the last several days. She has had a productive cough. She does have asthma COPD. She says she has been diagnosed with heart failure as well. I believe her chest x-ray is clear. PHYSICAL EXAMINATION: On exam she does have wheezing. No rales. Diminished air movement throughout and she has been she is already on home oxygen. The patient was given treatments but still had significant work of breathing, so she will be admitted for COPD exacerbation. We will do oxygen nebulizers, antibiotics and steroids. Her x-ray is ordered but I am not sure if it was completed yet maybe. She was here a couple days ago. We will follow up on chest x-ray, DVT, GI prophylaxis. This is a [id number] encounter note with Alana Robles. cc: Mihir Lemus MD
[2019-03-14 17:34] LABS: BILIRUBIN URINE NEGATIVE (NEGATIVE); BLOOD URINE TRACE (NEGATIVE); CLARITY CLEAR (CLEAR); COLOR YELLOW; GLUCOSE URINE NEGATIVE (NEGATIVE); KETONE URINE TRACE mg/dL (NEGATIVE); LEUKOCYTES URINE 2+ (NEGATIVE); NITRITE URINE NEGATIVE (NEGATIVE); SP GRAVITY URINE 1.005; UROBILINOGEN URINE NORMAL
[2019-03-14 17:37] LABS: URINE BACTERIA 1+ /HFP; URINE EPITHELIAL CELLS >10 /HPF (<10); URINE RBC <10 /HPF (<10); URINE TRICHOMONAS PRESENT; URINE WBC 20-40 /HPF (<10)
[2019-03-14 17:38] LABS: URINE SOURCE CLEAN CATCH
--- NOTE | 2019-03-14 17:58 | HISTORY AND PHYSICAL ---
PRIMARY CARE PROVIDER: EAGLE Guzmán. CHIEF COMPLAINT: Shortness of breath and cough that started last week and progressively worsened. HISTORY OF PRESENTING ILLNESS: This is a 63-year-old female who presents to [facility] ER with complaints of shortness of breath and coughing that began last week. States that she saw her primary care physician today and received a breathing treatment and a shot but had very little relief from that. She uses O2 at 2 L via NC at home and sleeps with a CPAP but states that she has had no improvement in her symptoms from those interventions and so she came to the emergency room. When she arrived, her O2 saturation on room air was 87%. Placed on O2 at 2 L via nasal cannula and is up to 98%. She is noted to have had a chest x-ray done on 03/12/2019 as an outpatient that showed a stable chest. She has a chest x-ray here that is pending but she is noted to be wheezing throughout her entire lung childers so she will be admitted with an acute chronic obstructive pulmonary disease exacerbation for further evaluation and treatment. PAST MEDICAL HISTORY: COPD on continuous O2 supposedly but primarily wears at night with her CPAP, obstructive sleep apnea with nightly CPAP, diabetes type 2, hypertension, peptic ulcer disease, GERD and restless legs syndrome, insomnia, congestive heart failure with a normal preserved ejection fraction and has severe pulmonary artery hypertension, morbid obesity. PAST SURGICAL HISTORY: Right knee replaced, partial hysterectomy, a rotator cuff repair on right. FAMILY HISTORY: Father of an unknown cancer. Mother of a stroke at 97. One sister of a brain tumor and another sister had diabetes. SOCIAL HISTORY: She lives with family, smokes a half a pack of cigarettes a day since age of 16 and denies any alcohol or illicit drug use. ALLERGIES: Ibuprofen. HOME MEDICATIONS: She does DuoNeb 4 times daily but that will be held, Elavil 25 mg p.o. daily, gabapentin 100 mg p.o. t.i.d., [place] 10 one to two p.o. q.4 hours p.r.n., Hyzaar 100/25 p.o. daily, metformin 500 mg p.o. b.i.d. LABORATORY DATA: Showed a white blood cell count of 9.74, hemoglobin 14.3, hematocrit 46.1, platelets 258,000, PT and INR of 13.2 and 0.95. ABG with a pH of 7.39, pCO2 of 62, PO2 43, bicarb 32.1 on room air. Sodium 144, potassium 3.8, chloride 98, CO2 35, BUN of 10, creatinine 0.8, glucose 126, creatine kinase of 369 with a CK-MB of 8.04, troponin less than 0.010, ProBNP of 2050. Chest x-ray is pending. She did have one on 03/12/2019 that showed a stable chest at that time. REVIEW OF SYSTEMS: She denied any fever, chills, blurred vision, dizziness, chest pain. She has had a productive cough, shortness of breath. Denied any abdominal pain, constipation, diarrhea, burning or hurting with urination. PHYSICAL EXAMINATION: On arrival she had a temperature of 96.9 degrees, pulse 95, respirations 20, blood pressure 131/79, saturating 87% on room air, placed on O2 via nasal cannula and saturations came up to 87%. GENERAL: This is a 63-year-old female who is lying in the bed and answers questions appropriately. HEENT: Normocephalic and atraumatic. Normal ENT inspection. Oropharynx and nares are clear. Pupils were equal, round, and reactive to light, accommodation. Extraocular movements are intact. NECK: Normal inspection, normal range of motion. LUNGS: With wheezing throughout entire posterior lung childers. Equal lung expansion, chest wall movement noted. O2 via nasal cannula currently in use. HEART: Regular rate and rhythm. No murmurs, rubs, or gallops. ABDOMEN: Soft, nontender, nondistended. Bowel sounds are present x4 quadrants. MUSCULOSKELETAL: Had 5/5 strength x4 extremities. NEUROLOGICAL: The cranial nerves 2-12 appear grossly intact. ASSESSMENT: 1. An acute chronic obstructive pulmonary disease exacerbation. 2. An acute respiratory failure. 3. Diabetes type 2. 4. Hypertension . PLAN: She will be admitted to the medical unit at [place], placed on telemetry, O2 per protocol, DuoNeb q.4 hours, incentive spirometry, Solu-Medrol 80 mg IV q.8 hours and wean as she improves. Continue home medications as previously identified. Place on Rocephin 1 gram IV q.24, azithromycin 500 IV q.24. Will need to follow up on the chest x-ray as it is still pending at this time. Recheck CBC, BMP in the a.m. Further orders after seen by attending. Dictated by EAGLE Moffett for Mihir Lemus MD cc: EAGLE Guzmán MD
--- NOTE | 2019-03-14 18:08 | PROVIDER DOCUMENTATION ---
This chart was entered by Crystal Jason Scribe, acting as scribe for Spike Dolan MD. HPI-Respiratory General - General Chief Complaint: Shortness of Breath Stated Complaint: SOB Time Seen by Provider: 03/14/19 16:00 Source: patient Allergies/Adverse Reactions: Patient Allergies Allergy/AdvReac Type Severity Reaction Status Date / Time ibuprofen [From Motrin] Allergy Mild HIVES Verified 03/14/19 15:46 Home Medications: Home Medication List Medication Instructions Recorded Confirmed Last Taken Type Losartan/Hydrochlorothiazide 1 each PO DAILY 04/24/12 03/14/19 03/13/19 History [Hyzaar 100/25 Tablet] Metformin [Glucophage] 500 mg PO BID 04/24/12 03/14/19 03/13/19 History Hydrocodone/APAP 10 mg/325 mg 1 - 2 each PO Q4H PRN PRN #0 tablet 05/23/13 03/14/19 03/13/19 Rx [[place]-10] Amitriptyline [Elavil] 25 mg PO DAILY 01/14/19 03/14/19 03/13/19 History Gabapentin 100 mg PO TID 01/14/19 03/14/19 03/13/19 History Albuterol 2.5MG/Ipratrop 0.5MG 3 ml INH 4XDAY 03/14/19 03/14/19 03/13/19 History [Duoneb (A & A)] - History of Present Illness-Resp Nature of Presenting Problem: 63 yobf c/o sob, cough starting last wk. pt was seen at pcp today and received breathing tx and shot w/little relief. pt had chest xrays done and sts everything looked ok. pt supposed to wear 2L o2 at home, sleeps w/cpap. pt breathing tx was at 1500. pt follow by leno naik. has hx of dm. pt is obese. Review of Systems - Adult - REVIEW OF SYSTEMS - ADULT Constitutional: reports: no symptoms reported. denies: chills, fever, night sweats Eyes: reports: no symptoms reported Ears, Nose, Mouth & Throat: reports: no symptoms reported Cardiovascular: reports: no symptoms reported Respiratory: reports: see HPI, cough, shortness of breath. denies: hemoptysis, pleurisy Gastrointestinal: reports: no symptoms reported Genitourinary: reports: no symptoms reported Musculoskeletal: reports: no symptoms reported Integumentary: reports: no symptoms reported Neurological: reports: no symptoms reported Psychiatric: reports: no symptoms reported Endocrine: reports: no symptoms reported Hematologic/Lymphatic: reports: no symptoms reported Allergic/Immunologic: reports: no symptoms reported All Other Systems: Reviewed and Negative Past History - Adult - PAST MEDICAL HISTORY-ADULT Review of Records: reports: Nursing Assessment Review, Medications Reviewed, Social history reviewed & non-contributory. Major Childhood Illnesses: reports: denies history Cardiovascular: reports: HTN Respiratory: reports: asthma, COPD, sleep apnea Gastrointestinal: reports: denies history Obstetrical/Gynecological: reports: denies history Genitourinary: reports: denies history Musculoskeletal: reports: chronic pain Neurological: reports: denies history Endocrine/Immune: reports: Diabetes Other Conditions: reports: denies history - PRIOR SURGERIES/PROCEDURES Surgical/Procedure History: reports: hysterectomy, orthopedic (extremity) - IMMUNIZATION STATUS Childhood Immunizations: See Nurse Assessment Flu Vaccine: See Nurse Assessment - FAMILY HISTORY Family History: reviewed, not pertinent - SOCIAL HISTORY Smoking: other (former smoker) Substance Use: none/never Physical Exam-General - PHYSICAL EXAM-ADULT Initial Vital Signs Reviewed: Yes - CONSTITUTIONAL General Appearance: alert, no apparent distress, obese. negative: lethargic, slow to respond, obtunded - EYES Eyes: PERRL/EOMI, pink conjunctivae - HEAD, EARS, NOSE, MOUTH & THROAT HENMT: normocephalic/atraumatic, moist mucous membranes, normal ENT inspection - NECK Neck: non-tender, full range of motion, supple, normal inspection - RESPIRATORY Respiratory: chest non-tender, normal breath sounds, no pleuratic chest pain, no respiratory distress, no accessory muscle use, wheezing (exp bilat). negative: lungs clear, crackles, rales, rhonchi - CARDIOVASCULAR Cardiovascular: normal peripheral pulses, regular rate, rhythm - GASTROINTESTINAL (ABDOMEN) Abdominal Exam: normal bowel sounds, non tender, soft - LYMPHATIC Lymphatic: no adenopathy - MUSCULOSKELETAL Back Exam: normal inspection, no CVA tenderness, no vertebral tenderness Extremity: normal range of motion, non-tender, normal inspection Peripheral Pulses: radial (R): 2+, radial (L): 2+ - SKIN Integumentary: normal color, normal turgor, warm/dry - NEUROLOGIC Neurologic: grossly normal, no motor/sensory deficits - PSYCHIATRIC Psych/Mental Status: normal mood/affect, normal thought content, normal thought process, oriented x 3 Progress - PLAN OF CARE/RESULTS Progress/Plan/Lab Results: Vital Signs - 8 hr 03/14/19 15:32 03/14/19 16:11 03/14/19 16:44 Temperature 96.9 F L Pulse Rate 95 H 91 H 88 Respiratory Rate 20 20 20 Blood Pressure 131/79 O2 Sat by Pulse Oximetry 87 L 98 99 Laboratory Results - last 24 hr 03/14/19 03/14/19 03/14/19 15:46 15:46 15:46 WBC 9.74 RBC 5.23 Hgb 14.3 Hct 46.1 MCV 88.1 MCH 27.3 MCHC 31.0 L RDW Std Deviation 15.3 H Plt Count 258 MPV 11.6 H Immature Gran % (Auto) 0.4 Neut % (Auto) 61.8 Lymph % (Auto) 19.3 L Gilchrist % (Auto) 14.5 H Eos % (Auto) 3.8 Baso % (Auto) 0.2 Immature Gran # (Auto) 0.04 Neut # (Auto) 6.02 Lymph # (Auto) 1.88 Gilchrist # (Auto) 1.41 H Eos # (Auto) 0.37 Baso # (Auto) 0.02 PT INR PTT (Actin FS) Specimen Type Sample Site pH pCO2 pO2 HCO3 Base Excess Oxyhemoglobin ABG O2 Sat (Calculated) ABG O2 Saturation ABG Carboxyhemoglobin ABG Methemoglobin Meliton Test A-a O2 Difference Total Hemoglobin Lactate Liter Flow Blood Gas Modality FiO2 % Sodium 144 Potassium 3.8 Chloride 98 Carbon Dioxide 35 Anion Gap 12 BUN 10 Creatinine 0.8 Estimated GFR/1.73 m2 > 60 BUN/Creatinine Ratio 13 Glucose 126 H Calculated Osmolality 287 Calcium 9.3 Total Bilirubin 0.50 AST 28 ALT 29 Alkaline Phosphatase 191 H Creatine Kinase 369 H Creatine Kinase Index 2.2 CK-MB (CK-2) 8.04 H Troponin T [id number]-Uvciifwodri Pept 2050 H Total Protein 7.2 Albumin 3.5 Globulin 4.0 Albumin/Globulin Ratio 1.0 Urine Source Urine Color Urine Clarity Urine pH Ur Specific [place]iba Urine Protein Urine Ketones Urine Blood Urine Nitrite Urine Bilirubin Urine Urobilinogen Urine Microscopic RBC Urine WBC Urine Microscopic WBC Ur Epithelial Cells Urine Bacteria Urine Trichomonas Urine Glucose 03/14/19 03/14/19 03/14/19 15:46 15:46 16:10 WBC RBC Hgb Hct MCV MCH MCHC RDW Std Deviation Plt Count MPV Immature Gran % (Auto) Neut % (Auto) Lymph % (Auto) Gilchrist % (Auto) Eos % (Auto) Baso % (Auto) Immature Gran # (Auto) Neut # (Auto) Lymph # (Auto) Gilchrist # (Auto) Eos # (Auto) Baso # (Auto) PT 13.2 INR 0.95 PTT (Actin FS) 29.2 Specimen Type ARTERIAL Sample Site R RADIAL pH 7.39 pCO2 62 H* pO2 43 L* HCO3 32.1 H Base Excess 9.8 H Oxyhemoglobin 80.1 L* ABG O2 Sat (Calculated) 16.6 ABG O2 Saturation 83.9 L ABG Carboxyhemoglobin 3.50 H ABG Methemoglobin 1.0 Meliton Test YES A-a O2 Difference 29.0 Total Hemoglobin 14.8 Lactate 1.60 Liter Flow 0.0 Blood Gas Modality ROOM AIR FiO2 % 21.0 Sodium Potassium Chloride Carbon Dioxide Anion Gap BUN Creatinine Estimated GFR/1.73 m2 BUN/Creatinine Ratio Glucose Calculated Osmolality Calcium Total Bilirubin AST ALT Alkaline Phosphatase Creatine Kinase Creatine Kinase Index CK-MB (CK-2) Troponin T < 0.010 Twx-[id number]-Btegflloupx Pept Total Protein Albumin Globulin Albumin/Globulin Ratio Urine Source Urine Color Urine Clarity Urine pH Ur Specific [place] Urine Protein Urine Ketones Urine Blood Urine Nitrite Urine Bilirubin Urine Urobilinogen Urine Microscopic RBC Urine WBC Urine Microscopic WBC Ur Epithelial Cells Urine Bacteria Urine Trichomonas Urine Glucose 03/14/19 17:20 WBC RBC Hgb Hct MCV MCH MCHC RDW Std Deviation Plt Count MPV Immature Gran % (Auto) Neut % (Auto) Lymph % (Auto) Gilchrist % (Auto) Eos % (Auto) Baso % (Auto) Immature Gran # (Auto) Neut # (Auto) Lymph # (Auto) Gilchrist # (Auto) Eos # (Auto) Baso # (Auto) PT INR PTT (Actin FS) Specimen Type Sample Site pH pCO2 pO2 HCO3 Base Excess Oxyhemoglobin ABG O2 Sat (Calculated) ABG O2 Saturation ABG Carboxyhemoglobin ABG Methemoglobin Meliton Test A-a O2 Difference Total Hemoglobin Lactate Liter Flow Blood Gas Modality FiO2 % Sodium Potassium Chloride Carbon Dioxide Anion Gap BUN Creatinine Estimated GFR/1.73 m2 BUN/Creatinine Ratio Glucose Calculated Osmolality Calcium Total Bilirubin AST ALT Alkaline Phosphatase Creatine Kinase Creatine Kinase Index CK-MB (CK-2) Troponin T Ylh-O-Fzokfdkkeii Pept Total Protein Albumin Globulin Albumin/Globulin Ratio Urine Source CLEAN CATCH Urine Color YELLOW Urine Clarity CLEAR Urine pH 7.0 Ur Specific [place] 1.005 Urine Protein 3+(500 mg/dL) A Urine Ketones TRACE Urine Blood TRACE Urine Nitrite NEGATIVE Urine Bilirubin NEGATIVE Urine Urobilinogen NORMAL Urine Microscopic RBC <10 Urine WBC 2+ A Urine Microscopic WBC 20-40 A Ur Epithelial Cells >10 A Urine Bacteria 1+ Urine Trichomonas PRESENT Urine Glucose NEGATIVE Orders Category Date Time Status Cardiac Monitoring DIRECTED Care 03/14/19 16:01 Active Oxygen Therapy- ED Nursing DIRECTED Care 03/14/19 16:01 Active Saline Loc NOW Care 03/14/19 16:01 Active CHEST-2 VIEWS [RAD] Stat Exams 03/14/19 16:01 Completed ABG [RESP] Routine Lab 03/14/19 16:10 Completed CBC WITH ELECTRONIC DIFF [HEME] Stat Lab 03/14/19 15:46 Completed CK PROFILE [SP CHEM] Stat Lab 03/14/19 15:46 Completed COMPREHENSIVE METABOLIC PANEL [CHEM] Stat Lab 03/14/19 15:46 Completed PRO B-NATRIURETIC PEPTIDE Stat Lab 03/14/19 15:46 Completed PROTIME WITH INR [COAG] Stat Lab 03/14/19 15:46 Completed PTT [COAG] Stat Lab 03/14/19 15:46 Completed TROPONIN T Stat Lab 03/14/19 15:[address] W/POSS RFLX CULT [URINALYSIS] Stat Lab 03/14/19 17:20 Completed URINE CULTURE [RM] Routine Lab 03/14/19 17:38 Ordered Albuterol 2.5MG/Ipratrop 0.5MG [Duoneb (A & A)] Med 03/14/19 16:04 Discontinued 3 ml INH NOW ONE Albuterol 2.5MG/Ipratrop 0.5MG [Duoneb (A & A)] Med 03/14/19 16:31 Discontinued 3 ml INH NOW ONE Aerosol Treatments Routine Oth 03/14/19 16:04 Active Aerosol Treatments Routine Oth 03/14/19 16:31 Active Aerosol Treatments Stat Oth 03/14/19 16:04 Active Aerosol Treatments Stat Oth 03/14/19 16:31 Active CP/SOB/Palp >45 yrs of Age Stat Oth 03/14/19 16:00 Ordered EKG [EKG] Stat Ther 03/14/19 16:01 Ordered Transfer/Admit Order [TRANSFER] Routine Transfer 03/14/19 16:47 Ordered Result Diagrams: 03/14/19 15:46 03/14/19 15:46 - CONSULTS/PCP/HOSPITALIST Notification #1 *Consult/PCP/Hospitalist*: Alana Time Discussed: 16:40 Consult Disposition: Will see in ED #2 Consult: Dr. Lemus/ Alana Time Discussed: 16:44 Consult Disposition: Admit (to [facility]) Departure - Departure Date of Disposition Decision: 03/14/19 Time of Disposition Decision: 18:07 DIAGNOSIS: Shortness of breath, Hypoxia Disposition: ADMITTED INPATIENT 09 Certified Medical Emergency: Emergent Condition: Stable - Critical Care Note This patient required my direct & personal management of CC.: No Attestation - Physician/ ANY Attestation Patient care was provided by Advanced Practice Provider:: No The physician spent face to face time with patient:: Yes Advanced Practice Provider documentation review:: Supervising physician onsite and consulted in the evaluation and care of this patient. The physician did have a face to face encounter with the patient. This chart was documented by the indicated scribe, (Crystal Jason, Jessica) and accurately reflects the services I performed and decisions made by me, Spike Dolan MD, as attested by the provider's signature.
--- NOTE | 2019-03-14 18:26 | EKG Report ---
Test Performed on : 03/14/2019 6:03:13 PM Test Reason : sob Blood Pressure : / mmHG Vent. Rate : 085 BPM Atrial Rate : 085 BPM P-R Int : 154 ms QRS Dur : 072 ms QT Int : 380 ms P-R-T Axes : 065 046 048 degrees QTc Int : 452 ms Normal sinus rhythm. Possible Left atrial enlargement Borderline ECG When compared with ECG of 14-JAN-2019 08:38, (Unconfirmed) No significant change was found Unconfirmed Result
[2019-03-14] MEDS ORDERED: TYLENOL PO PRN (18:39)
[2019-03-14] MEDS ORDERED: NORCO-10 PO PRN (18:39)
[2019-03-14] MEDS: DUONEB (A & A) INH SCH ×2 (19:35→23:02)
[2019-03-14] MEDS: SOLU-MEDROL IV SCH (20:37)
[2019-03-14] MEDS: ROCEPHIN 1 GM in NS 50 ML IV SCH (20:38)
[2019-03-14] MEDS: NEURONTIN PO SCH (21:46)
[2019-03-14] MEDS: ZITHROMAX 500 MG/NS 500 MG/250 ML IVPB IV SCH (21:46)
[2019-03-14] MEDS: GLUCOPHAGE PO SCH (22:03)
[2019-03-15] MEDS: SOLU-MEDROL IV SCH ×4 (01:34→20:00)
[2019-03-15] MEDS: DUONEB (A & A) INH SCH ×6 (03:26→22:30)
[2019-03-15] MEDS: NEURONTIN PO SCH ×3 (06:04→21:47)
[2019-03-15 06:46] LABS: AGAP 9; BUN 10 mg/dL (8-22); CALCIUM 9.4 mg/dL (8.8-10.2); CHLORIDE 95 mmol/L (98-107); COSMO 285; CREATININE 0.7 mg/dL (0.5-0.9); ESTIMATED GFR > 60; GLUCOSE 392 mg/dL (70-104); POTASSIUM 4.6 mmol/L (3.5-5.1); SODIUM 135 mmol/L (136-145); TCO2 32 mmol/L (25-35)
[2019-03-15 07:03] LABS: BASO# 0.01 X1000 (0.0-0.2); BASO% 0.1 % (0.0-0.8); EOS# 0.01 X1000 (0.0-0.7); EOS% 0.1 % (0.0-10.0); HEMATOCRIT 45.7 % (37.0-47.0); HEMOGLOBIN 14.3 g/dL (12.0-16.0); IMM GRAN# 0.05 X1000 (0.0-0.04); IMM GRAN% 0.5 % (0.0-0.5); LYMPH# 0.66 X1000 (1.2-3.4); LYMPH% 6.6 % (20.5-51.1); MCH 27.7 PG (27-31); MCHC 31.3 g/dL (33-37); MCV 88.4 FL (81-99); MONO# 0.14 X1000 (0.11-0.59); MONO% 1.4 % (1.7-9.3); MPV 11.7 FL (7.4-10.4); NEUT# 9.12 X1000 (1.4-6.5); NEUT% 91.3 % (42.2-75.2); PLT 232 X1000 (130-400); RBC 5.17 XMIL (4.2-5.4); RDW 15.3 % (11.5-14.5); WBC 9.99 X1000 (4.8-10.8)
[2019-03-15 07:21] LABS: LYMPHS 2 % (21-51); MONO 1 % (1-9); SEGS 97 % (42-75)
[2019-03-15] MEDS: GLUCOPHAGE PO SCH ×2 (09:01→17:02)
[2019-03-15] MEDS: ELAVIL PO SCH (09:01)
[2019-03-15] MEDS: HYDROCHLOROTHIAZIDE PO SCH (09:01)
[2019-03-15] MEDS: COZAAR PO SCH (09:01)
[2019-03-15 09:32] LABS: BE 11.8 mmoll (-3.0-3.0); BLOOD TYPE ARTERIAL; HCO3-(ACT) 33.8 mmoll (20.0-26.0); METHB 1.6 % (0.0-1.5); O2(CT) 18.1 mL/dL (15.0-23.0); PO2(98.6) 52 mmHg (60-100); SAMPLE BLOOD; SAO2 90.5 % (95.0-100.0); pH(98.6) 7.34 (7.35-7.45)
[2019-03-15 09:36] LABS: ALLEN TEST YES; MODALITY CANNULA; O2HB 86.2 % (95.0-99.0); PCO2(98.6) 77 mmHg (35-45)
--- NOTE | 2019-03-15 10:44 | PROGRESS NOTE ---
DATE: 03/15/2019 SUBJECTIVE: Patient denies having any acute complaints this morning and feels well. She actually wants to go home. OBJECTIVE: Vital Signs: Temperature 99.4 degrees, pulse 79 per minute, respiratory rate 18 per minute, blood pressure 149/76, pulse oximetry 96% on 3 L of oxygen via nasal cannula. General: Patient is alert and oriented x3. She does not appear to be in any acute distress. Cardiovascular System: First and second heart sounds are audible without murmurs or gallops. Respiratory System: No respiratory distress noted. Bilateral lung air entry is moderately decreased but there are no rales or rhonchi present on auscultation. Gastrointestinal: Abdomen is soft and nondistended. Normal bowel sounds are present. DIAGNOSTIC DATA: CBC is nondiagnostic and basic metabolic panel showed glucose levels of 392. Rest of the BMP is nondiagnostic. Arterial blood gases done this morning showed pH of 7.34, pCO2 77, and PO2 52 on 32% oxygen. IMPRESSION: 1. Acute hypoxemic respiratory failure secondary to acute chronic obstructive pulmonary disease exacerbation. 2. Type 2 diabetes mellitus. 3. Hypertension. PLAN: We will keep the patient here at the hospital and continue giving her IV steroids along with bronchodilators. She will also continue with ceftriaxone along with azithromycin and will continue with routine supportive care including her routine home medications. Further recommendations will be given as per hospital course. cc: Lata Dixon MD
[2019-03-15] MEDS ORDERED: GLUCOPHAGE PO ONE (17:14)
[2019-03-15] MEDS: ZITHROMAX 500 MG/NS 500 MG/250 ML IVPB IV SCH (20:00)
[2019-03-15] MEDS: ROCEPHIN 1 GM in NS 50 ML IV SCH (21:47)
[2019-03-16] MEDS: SOLU-MEDROL IV SCH ×2 (01:14→06:10)
[2019-03-16] MEDS: DUONEB (A & A) INH SCH ×6 (02:59→23:11)
[2019-03-16] MEDS: NEURONTIN PO SCH ×3 (06:11→21:43)
[2019-03-16 06:19] LABS: BASO# 0.01 X1000 (0.0-0.2); BASO% 0.1 % (0.0-0.8); HEMATOCRIT 45.5 % (37.0-47.0); HEMOGLOBIN 13.9 g/dL (12.0-16.0); IMM GRAN# 0.07 X1000 (0.0-0.04); IMM GRAN% 0.4 % (0.0-0.5); LYMPH# 0.94 X1000 (1.2-3.4); LYMPH% 5.1 % (20.5-51.1); MCHC 30.5 g/dL (33-37); MCV 88.5 FL (81-99); MONO# 0.88 X1000 (0.11-0.59); MONO% 4.7 % (1.7-9.3); NEUT# 16.63 X1000 (1.4-6.5); NEUT% 89.7 % (42.2-75.2); PLT 245 X1000 (130-400); RBC 5.14 XMIL (4.2-5.4); RDW 15.3 % (11.5-14.5); WBC 18.53 X1000 (4.8-10.8)
[2019-03-16 06:23] LABS: BE 12.7 mmoll (-3.0-3.0); BLOOD TYPE ARTERIAL; HCO3-(ACT) 34.7 mmoll (20.0-26.0); METHB 1.2 % (0.0-1.5); O2(CT) 18.8 mL/dL (15.0-23.0); O2HB 92.9 % (95.0-99.0); PO2(98.6) 72 mmHg (60-100); SAMPLE BLOOD; THB 14.4 g/dL (11.5-17.4); pH(98.6) 7.37 (7.35-7.45)
[2019-03-16 06:28] LABS: MODALITY CANNULA; PCO2(98.6) 72 mmHg (35-45)
[2019-03-16 06:29] LABS: ALLEN TEST YES
[2019-03-16 06:42] LABS: AGAP 8; ALBUMIN 3.4 g/dL (3.5-5.0); ALKALINE PHOSPHATASE 183 U/L (32-104); BUN 15 mg/dL (8-22); CALCIUM 9.5 mg/dL (8.8-10.2); CHLORIDE 93 mmol/L (98-107); COSMO 283; CREATININE 0.7 mg/dL (0.5-0.9); ESTIMATED GFR > 60; GLUCOSE 307 mg/dL (70-104); GOT 32 U/L (10-30); GPT 48 U/L (10-36); POTASSIUM 4.6 mmol/L (3.5-5.1); SODIUM 135 mmol/L (136-145); TCO2 35 mmol/L (25-35); TOTAL PROTEIN 7.6 g/dL (6.3-8.3)
[2019-03-16 06:50] LABS: LYMPHS 4 % (21-51); MONO 6 % (1-9); SEGS 90 % (42-75)
[2019-03-16 06:51] LABS: ANISOCYTOSIS 1+
[2019-03-16 06:52] LABS: HYPOCHROM 1+; MICROCYTOSIS OCCASIONAL; OVALOCYTES OCCASIONAL; POIKILOCYTOSIS 1+; POLYCHROM OCCASIONAL; STOMATOCYTES OCCASIONAL; TARGET CELLS OCCASIONAL
[2019-03-16] MEDS: ELAVIL PO SCH (08:37)
[2019-03-16] MEDS: HYDROCHLOROTHIAZIDE PO SCH (08:37)
[2019-03-16] MEDS: COZAAR PO SCH (08:37)
[2019-03-16] MEDS: GLUCOPHAGE PO SCH ×2 (08:37→16:09)
[2019-03-16] MEDS ORDERED: HUMALOG (PARKWAY) SUBQ ONE (11:45)
--- NOTE | 2019-03-16 13:51 | PROGRESS NOTE ---
DATE: 03/16/2019 SUBJECTIVE: Patient denies having any acute complaints this morning. She actually wants to go home. OBJECTIVE: Vital Signs: Temperature 97.5 degrees, pulse 98 per minute, respiratory rate 16 per minute, blood pressure 152/87, pulse oximetry 96% on 3 L of oxygen via nasal cannula. General: Patient is alert and oriented x3. She does not appear to be in any acute distress. Cardiovascular System: First and second heart sounds are audible without any murmurs or gallops. Respiratory System: Bilateral lung air entry is moderately decreased with few occasional rhonchi present on auscultation bilaterally. Gastrointestinal System: Patient is morbidly obese. Abdomen is soft and nontender on palpation. Normal bowel sounds are present. Musculoskeletal System: No deformities are present. DIAGNOSTIC DATA: CBC shows WBC count of 18.53 with 89.7% neutrophils. In comparison her WBC count was 9.99 yesterday. Arterial blood gases showed pH of 7.37, pCO2 72, and PO2 72 on 3 L of oxygen via nasal cannula. Comprehensive metabolic panel done this morning showed glucose of 307, AST 32, and ALT 48. Rest of the comprehensive metabolic panel is nondiagnostic. IMPRESSION: 1. Acute hypoxemic respiratory failure secondary to acute COPD exacerbation. 2. Type 2 diabetes mellitus. 3. Hypertension. 4. Urinary tract infection. 5. Leukocytosis. PLAN: The patient's overall condition has improved clinically, but she has developed leukocytosis which could have been secondary to the systemic steroids that she received during the initial part of this hospital admission. I believe that has caused her glucose levels to go up as well. Since she did not have any further respiratory issues, we have discontinued her systemic steroids. She will continue to get ceftriaxone along with azithromycin intravenously. We will give her lispro insulin subcutaneously as per sliding scale for her uncontrolled diabetes and give her supportive care. She does have urinary tract infection which should be addressed appropriately with ceftriaxone intravenously. It should be noted that the patient has hypoxemia, but has chronic oxygen dependence and has been using supplemental oxygen at the rate of 3 L/minute via nasal cannula at home 24 hours. cc: Lata Dixon MD
[2019-03-16] MEDS: HUMALOG (PARKWAY) SUBQ SCH ×2 (16:39→20:43)
[2019-03-16] MEDS: ROCEPHIN 1 GM in NS 50 ML IV SCH (20:15)
[2019-03-16] MEDS: ZITHROMAX 500 MG/NS 500 MG/250 ML IVPB IV SCH (20:44)
[2019-03-16] MEDS ORDERED: ZANTAC PO ONE (23:07)
[2019-03-16] MEDS ORDERED: HALL'S COUGH LOZENGE MT PRN (23:44)
[2019-03-17] MEDS: DUONEB (A & A) INH SCH ×3 (03:19→11:29)
[2019-03-17] MEDS: NEURONTIN PO SCH (05:12)
[2019-03-17] MEDS: HUMALOG (PARKWAY) SUBQ SCH ×2 (06:08→11:14)
[2019-03-17 07:59] VITALS: BP 141/81
[2019-03-17] MEDS: GLUCOPHAGE PO SCH (08:02)
[2019-03-17] MEDS: HYDROCHLOROTHIAZIDE PO SCH (08:02)
[2019-03-17] MEDS: COZAAR PO SCH (08:02)
[2019-03-17] MEDS: ELAVIL PO SCH (08:02)
[2019-03-17 09:41] LABS: HEMATOCRIT 45.7 % (37.0-47.0); HEMOGLOBIN 13.6 g/dL (12.0-16.0); MCHC 29.8 g/dL (33-37); MCV 90.7 FL (81-99); MPV 11.4 FL (7.4-10.4); RBC 5.04 XMIL (4.2-5.4); RDW 15.7 % (11.5-14.5); WBC 15.36 X1000 (4.8-10.8)
[2019-03-17] MEDS ORDERED: FLU VACCINE IM ONE (11:59)
[2019-03-17] MEDS ORDERED: PNEUMOVAX 23 IM ONE (11:59)
[2019-03-17] MEDS ORDERED: ELAVIL PO SCH (21:00)
--- NOTE | 2019-03-18 04:52 | DISCHARGE SUMMARY ---
ADMISSION DATE: 03/14/2019 DISCHARGE DATE: 03/17/2019 DISCHARGE DIAGNOSES: 1. Acute hypoxic respiratory failure. 2. Chronic obstructive pulmonary disease exacerbation. HISTORY: Patient is ready to go this morning. She is a bit upset and she says she is going to go home today. The patient is stabilized. There is no wheezing on exam. She is on 2 L, and plan is to discharge her today. I think she is stable for outpatient treatment. White count is down from 18 to 15. Discharge condition is stable, and anticipate discharge on antibiotics: Ceftin and Zithromax. We will not do steroids as it caused a fairly significant leukocytosis, and her wheezing seems better. I anticipate discharge today. This is a [id number] encounter note with EAGLE Nguyễn. We will continue to monitor. cc: Mihir Lemus MD MTDD
--- NOTE | 2019-04-21 06:31 | DISCHARGE SUMMARY ---
ADMISSION DATE: 03/14/2019 DISCHARGE DATE: 03/17/2019 DISCHARGE DIAGNOSES: 1. Acute hypoxic respiratory failure. 2. Chronic obstructive pulmonary disease exacerbation. HOSPITAL COURSE: The patient came in for shortness of breath, admitted on the . She was placed on breathing treatments. She had slow clinical improvement, placed on Solu-Medrol, Rocephin breathing treatments. On the , she was felt stable for discharge. There is also evidence of a possible UTI. Her DISCHARGE MEDICATIONS ARE FOLLOWS: 1. DuoNeb nebs q.i.d. 2. Elavil 25 daily. 3. Gabapentin 100 t.i.d. 4. Metformin 1 g b.i.d. 5. Losartan hydrochlorothiazide 100/25 daily. 6. Lactobacillus. 7. Lamy. 8. Phenergan. DISCHARGE CONDITION: Stable. cc: MD Sheron Arreola CRNP
== END 2019-03-17 13:20 | disposition home or self-care (01) | DRG 190 ==
LOC: P.ED 15:27 → SUATTDRO 18:04 → P.MEDSURG 18:04
PROVIDERS: ATTEND Internal Medicine

== ENCOUNTER 2019-03-18 10:22 | Observation (INO) ==
--- NOTE | 2019-03-18 11:37 | PROVIDER DOCUMENTATION ---
HPI-General Adult - General Chief Complaint: Abdominal Pain Stated Complaint: abd pain/vomiting Time Seen by Provider: 03/18/19 11:35 Source: patient Allergies/Adverse Reactions: Patient Allergies Allergy/AdvReac Type Severity Reaction Status Date / Time ibuprofen [From Motrin] Allergy Mild HIVES Verified 03/18/19 11:13 Home Medications: Home Medication List Medication Instructions Recorded Confirmed Last Taken Type Losartan/Hydrochlorothiazide 1 each PO DAILY 04/24/12 03/18/19 03/13/19 History [Hyzaar 100/25 Tablet] Metformin [Glucophage] 1,000 mg PO BID 04/24/12 03/18/19 03/13/19 History Hydrocodone/APAP 10 mg/325 mg 1 - 2 each PO Q4H PRN PRN #0 tablet 05/23/13 03/18/19 03/13/19 Rx [[place]-10] Amitriptyline [Elavil] 25 mg PO DAILY 01/14/19 03/18/19 03/13/19 History Gabapentin 100 mg PO TID 01/14/19 03/18/19 03/13/19 History Albuterol 2.5MG/Ipratrop 0.5MG 3 ml INH 4XDAY 03/14/19 03/18/19 03/13/19 History [Duoneb (A & A)] Azithromycin 250 mg PO DAILY #3 tab 03/17/19 03/18/19 Unknown Rx CefUROXIME [Ceftin] 500 mg PO Q12HR #14 tab 03/17/19 03/18/19 Unknown Rx - History of Present Illness -Gen Adult Nature of Presenting Problems: This is a 63yo female who presents with CC of diarrhea and feeling sick to her stomach. This started today. The patient reports every one is sick at home. The patient denies any blood in her vomit or stool. The patient reports that she has had diarrhea about three times today. The patient was recently discharged from [facility] for COPD and respiratory issues. The patient denies any cough or SOB. The patient does reports some belly pain, but denies fever. Location of Pain/Injury: reports: abdomen Onset/Duration: reports: other (today) Timing: reports: still present Context/Activities at Onset: reports: other (other family members sick) Associated Symptoms: reports: diarrhea, vomiting Review of Systems - Adult - REVIEW OF SYSTEMS - ADULT Constitutional: denies: fever Eyes: reports: no symptoms reported Ears, Nose, Mouth & Throat: reports: no symptoms reported Cardiovascular: reports: no symptoms reported. denies: chest pain Respiratory: reports: no symptoms reported. denies: shortness of breath Gastrointestinal: reports: abdominal pain, diarrhea, nausea, vomiting Genitourinary: reports: no symptoms reported. denies: dysuria Musculoskeletal: reports: no symptoms reported, other (chronic knee pain) Integumentary: reports: no symptoms reported Neurological: reports: no symptoms reported Psychiatric: reports: no symptoms reported Endocrine: reports: no symptoms reported Hematologic/Lymphatic: reports: no symptoms reported Allergic/Immunologic: reports: no symptoms reported Past History - Adult - PAST MEDICAL HISTORY-ADULT Review of Records: reports: Old Records Reviewed Major Childhood Illnesses: reports: denies history Cardiovascular: reports: HTN Respiratory: reports: asthma, COPD, sleep apnea Gastrointestinal: reports: denies history Obstetrical/Gynecological: reports: denies history Genitourinary: reports: denies history Musculoskeletal: reports: chronic pain Neurological: reports: denies history Endocrine/Immune: reports: Diabetes Other Conditions: reports: denies history - PRIOR SURGERIES/PROCEDURES Surgical/Procedure History: reports: hysterectomy, orthopedic (extremity) - IMMUNIZATION STATUS Childhood Immunizations: See Nurse Assessment Flu Vaccine: See Nurse Assessment - FAMILY HISTORY Family History: reviewed, not pertinent Physical Exam-General - PHYSICAL EXAM-ADULT Initial Vital Signs Reviewed: Yes - CONSTITUTIONAL General Appearance: alert, mild distress - EYES Eyes: negative: conjuctival exudate - HEAD, EARS, NOSE, MOUTH & THROAT HENMT: normocephalic/atraumatic, moist mucous membranes - RESPIRATORY Respiratory: no respiratory distress, decreased breath sounds, rales (mild RLL rales) - CARDIOVASCULAR Cardiovascular: regular rate, rhythm, no edema - GASTROINTESTINAL (ABDOMEN) Abdominal Exam: soft, tenderness - SKIN Integumentary: warm/dry - NEUROLOGIC Neurologic: grossly normal - PSYCHIATRIC Psych/Mental Status: normal mood/affect Progress - PLAN OF CARE/RESULTS Progress/Plan/Lab Results: Vital Signs - 8 hr 03/18/19 11:00 Temperature 97.7 F Pulse Rate 95 H Respiratory Rate 20 Blood Pressure 158/95 O2 Sat by Pulse Oximetry 96 Result Diagrams: 03/18/19 12:15 03/18/19 12:15 - REASSESSMENT Reassessment #1 Status: improving (Patient reports that she is feeling a little better, but reports that she is still having abdominal pain. Abdomen re-checked and patient still with diffuse moderate abdominal pain.) Reassessment #2 Status: other (The patient does reports some improvement with abdominal pain. CT showing some enteritis. The patient still reports nausea and recent vomiting. The patient does not want to eat anything as she is concerned she will not be able to keep it down.) Reassessment #3 Status: improving (Patient with some improvement in abdominal pain after ph energen. She would like to try to eat something. Jello provided.) Reassessment #4 Status: other (Patient was unable to tolerating eating the jello. Given persistant nausea intractable to multiple medications as well as difficulty maintaining PO intake patient will be admited for observation. Discussed the case with hospitalist team who have accepted the patient.) - EKG 1 EKG Interpretation (*Must complete 3 of following elements*): Abnormal Rate: 104 Rhythm: sinus [place]: normal QRS: normal OK Interval: normal ST Wave: normal Prior EKG Comparison: changes noted Comments: tachycardia is a new finding from previous EKG in 2013 Departure - Departure Date of Disposition Decision: 03/18/19 Time of Disposition Decision: 17:53 DIAGNOSIS: Enteritis Nausea & vomiting Qualifiers: Vomiting type: unspecified Vomiting Intractability: intractable Qualified Code(s): R11.2 - Nausea with vomiting, unspecified Disposition: ADMITTED INPATIENT 09 Certified Medical Emergency: Emergent Condition: Fair Referrals and Follow-Ups: Sheron Christy CRNP [Primary Care Provider] - - Critical Care Note This patient required my direct & personal management of CC.: No Attestation - Physician/ ANY Attestation Patient care was provided by Advanced Practice Provider:: No The physician spent face to face time with patient:: Yes Advanced Practice Provider documentation review:: Supervising physician onsite and consulted in the evaluation and care of this patient. The physician did have a face to face encounter with the patient.
[2019-03-18] MEDS ORDERED: ZOFRAN IV ONE ×2 (12:25→14:37)
[2019-03-18 12:32] LABS: BASO# 0.01 X1000 (0.0-0.2); BASO% 0.1 % (0.0-0.8); EOS% 1.3 % (0.0-10.0); HEMOGLOBIN 15.1 g/dL (12.0-16.0); IMM GRAN# 0.05 X1000 (0.0-0.04); IMM GRAN% 0.3 % (0.0-0.5); LYMPH# 0.55 X1000 (1.2-3.4); LYMPH% 3.6 % (20.5-51.1); MCH 27.3 PG (27-31); MCHC 30.8 g/dL (33-37); MCV 88.4 FL (81-99); MONO# 2.28 X1000 (0.11-0.59); MPV 11.5 FL (7.4-10.4); NEUT# 12.14 X1000 (1.4-6.5); NEUT% 79.7 % (42.2-75.2); PLT 236 X1000 (130-400); RBC 5.54 XMIL (4.2-5.4); RDW 14.9 % (11.5-14.5); WBC 15.23 X1000 (4.8-10.8)
[2019-03-18] MEDS ORDERED: NS 1,000 ML IV ONE (12:45)
[2019-03-18 12:47] LABS: URINE SOURCE CLEAN CATCH
[2019-03-18 12:51] LABS: BILIRUBIN URINE NEGATIVE (NEGATIVE); BLOOD URINE TRACE (NEGATIVE); COLOR YELLOW; GLUCOSE URINE 150 mg/dL (NEGATIVE); KETONE URINE NEGATIVE (NEGATIVE); LEUKOCYTES URINE SMALL (NEGATIVE); NITRITE URINE NEGATIVE (NEGATIVE); PH URINE 8.5; PROTEIN URINE 200 mg/dL (NEGATIVE); SP GRAVITY URINE 1.016; TURBIDITY URINE HAZY (CLEAR); UROBILINOGEN URINE NORMAL (NORMAL)
[2019-03-18 12:52] LABS: UR EPITHELIAL CELLS <10 /HPF (<10); URINE BACTERIA NEGATIVE /HPF; URINE RBC <10 /HPF (<10); URINE WBC TNTC /HPF (<10)
[2019-03-18 13:15] LABS: ESTIMATED GFR > 60
[2019-03-18 13:49] LABS: AGAP 15; ALB/GLOB RATIO 0.7; ALBUMIN 3.2 g/dL (3.5-5.0); ALKALINE PHOSPHATASE 140 U/L (32-104); AMYLASE 81 U/L (20-200); BUN 14 mg/dL (8-22); CALCIUM 9.1 mg/dL (8.8-10.2); CHLORIDE 89 mmol/L (98-107); COSMO 280; CREATININE 0.7 mg/dL (0.5-0.9); GLUCOSE 233 mg/dL (70-104); GOT 18 U/L (10-30); GPT 32 U/L (10-36); LIPASE 33 U/L (13-60); SODIUM 136 mmol/L (136-145); TCO2 32 mmol/L (25-35); TOTAL BILIRUBIN 1.22 mg/dL (0.20-1.00); TOTAL PROTEIN 7.6 g/dL (6.3-8.3)
[2019-03-18] MEDS ORDERED: BENADRYL IV ONE (14:38)
[2019-03-18] MEDS ORDERED: TYLENOL PO ONE (15:06)
--- NOTE | 2019-03-18 15:56 | EKG Report ---
Test Performed on : 03/18/2019 3:08:50 PM Test Reason : nausea Blood Pressure : / mmHG Vent. Rate : 104 BPM Atrial Rate : 104 BPM P-R Int : 142 ms QRS Dur : 078 ms QT Int : 360 ms P-R-T Axes : 062 061 055 degrees QTc Int : 473 ms Sinus tachycardia. Possible Left atrial enlargement Borderline ECG When compared with ECG of 14-MAR-2019 18:03, (Unconfirmed) No significant change was found Unconfirmed Result
--- NOTE | 2019-03-18 16:07 | Diag Imaging Result Doc PS360 ---
EXAM: CT ABD/PELVIS W/IV CONT ONLY HISTORY: Abdominal Pain TECHNIQUE: CT abdomen and pelvis with intravenous contrast COMPARISON: None. FINDINGS: The heart is enlarged. There is pulmonary edema. Fatty infiltration of the liver. No calcified gallstones or adjacent inflammation. Normal spleen, pancreas, adrenal glands, and kidneys. No hydronephrosis. No aortic aneurysm. Prominent atherosclerosis. Normal appendix. No abscess. No bowel obstruction. Mild thickening to several proximal small bowel loops The uterus has been removed. The urinary bladder is only mildly distended. No pelvic mass. IMPRESSION: 1.Cardiomegaly with pulmonary edema 2.There is fatty infiltration of the liver 3.Prominent atherosclerosis 4.Hysterectomy 5.Likely enteritis This exam was performed using automated exposure control, adjustment of mA or kV according to patient size, and/or use of iterative reconstruction technique. Electronically signed by Tommie Baltazar 03/18/2019 4:05 PM
[2019-03-18] MEDS ORDERED: PHENERGAN IM ONE (16:34)
[2019-03-18] MEDS ORDERED: TYLENOL PO PRN (18:19)
[2019-03-18] MEDS ORDERED: PHENERGAN PR PRN (18:19)
[2019-03-18] MEDS ORDERED: PHENERGAN PO PRN (18:19)
--- NOTE | 2019-03-18 19:26 | HISTORY AND PHYSICAL ---
PRIMARY CARE PROVIDER: EAGLE Guzmán. CHIEF COMPLAINT: Intractable nausea, vomiting, diarrhea. HISTORY OF PRESENT ILLNESS: Ms. Flores is a 63-year-old female who was recently discharged from our service yesterday after having acute hypoxemic respiratory failure and COPD exacerbation. She was initially admitted on 03/14 and discharged on 03/17. She was having no issues with nausea and vomiting at the time of her discharge, however she reports her whole household has had the stomach virus. She woke up feeling nauseated this a.m., started vomiting and diarrhea for a total of 5 times. She came to the ED to be evaluated. She was given multiple doses of Zofran and Phenergan without any relief. Her abdomen CT showed enteritis. We will admit her on observation status and continue with antiemetics. PAST MEDICAL HISTORY: 1. COPD on home O2 but primary wears at night with CPAP. 2. Obstructive sleep apnea with CPAP. 3. Diabetes mellitus type 2. 4. Hypertension. 5. Peptic ulcer disease. 6. Gastroesophageal reflux disease. 7. Restless leg syndrome. 8. Insomnia. 9. Congestive heart failure with preserved ejection fraction. 10. Severe pulmonary hypertension. 11. Morbid obesity. PAST SURGICAL HISTORY: 1. Right knee replacement. 2. Partial hysterectomy. 3. Rotator cuff repair on the right. FAMILY HISTORY: Father of unknown cancer. Mother of a stroke at the age of 97. One sister of a brain tumor. Another sister had diabetes. SOCIAL HISTORY: She lives with family. She smokes half pack cigarettes per day has done so since age of 16. No alcohol or illicit drug use. ALLERGIES: Ibuprofen. HOME MEDICATIONS: Have not been verified. LABORATORY DATA: White count 15, hemoglobin and hematocrit 15 and 49, platelet count of 236,000. Sodium 136, potassium 4.0, BUN 14, creatinine 0.7, blood glucose is 233, alkaline phosphatase 140, amylase 81, lipase 33. ASSESSMENT AND PLAN: 1. Gastroenteritis. She reports that all her family members have been sick with a stomach virus. We will continue with IV fluids, antiemetics. Continue n.p.o. status. She is refusing to eat or drink. 2. Recent discharge for chronic obstructive pulmonary disease exacerbation. She is not complaining of any shortness of breath, wheezing, or cough. She took a round of antibiotics last night. We will hold off on antibiotics for now, maybe reinitiate tomorrow. We will continue her on her supplemental O2 and her scheduled DuoNeb. 3. Obstructive sleep apnea, wears nightly CPAP. 4. Diabetes mellitus type 2. Will place her on sliding scale with pattern blood sugars. 5. Hypertension. Continue home medications. 6. Gastroesophageal reflux disease. Continue proton pump inhibitor. 7. Restless leg syndrome. 8. Congestive heart failure. We will gently hydrate her overnight. 9. Severe pulmonary hypertension aware. 10. Morbid obesity aware. 11. Further recommendation to follow physician evaluation, laboratory and diagnostic data. Dictated by EAGLE Arredondo for Bereket Gan MD cc: EAGLE Guzmán Addendum: I have seen and examined Ms Flores today. She presents with intractable nausea and vomiting due to suspected viral gastroenteritis. I have reviewed her labs and imaging studies as well. I agree with the above H&P and the plan reflects my opinion discussed with the VACCINATOR. MONA
[2019-03-18] MEDS: DUONEB (A & A) INH SCH (21:56)
[2019-03-18] MEDS: HUMALOG SUBQ SCH (22:29)
[2019-03-19] MEDS: HYZAAR 50/12.5 MG PO SCH ×2 (01:20→11:10)
[2019-03-19] MEDS: ZOFRAN IV PRN ×2 (01:20→05:09)
[2019-03-19] MEDS: NS 1,000 ML IV SCH ×2 (01:20→16:08)
[2019-03-19] MEDS: DUONEB (A & A) INH SCH ×4 (03:19→21:24)
[2019-03-19 06:59] LABS: BASO# 0.01 X1000 (0.0-0.2); BASO% 0.1 % (0.0-0.8); EOS# 0.16 X1000 (0.0-0.7); EOS% 1.9 % (0.0-10.0); HEMATOCRIT 47.5 % (37.0-47.0); HEMOGLOBIN 14.9 g/dL (12.0-16.0); IMM GRAN# 0.02 X1000 (0.0-0.04); IMM GRAN% 0.2 % (0.0-0.5); LYMPH# 0.83 X1000 (1.2-3.4); LYMPH% 10.1 % (20.5-51.1); MCH 27.3 PG (27-31); MCHC 31.4 g/dL (33-37); MCV 87.2 FL (81-99); MONO# 0.96 X1000 (0.11-0.59); MONO% 11.7 % (1.7-9.3); MPV 11.6 FL (7.4-10.4); NEUT# 6.26 X1000 (1.4-6.5); PLT 224 X1000 (130-400); RBC 5.45 XMIL (4.2-5.4); RDW 14.9 % (11.5-14.5); WBC 8.24 X1000 (4.8-10.8)
[2019-03-19] MEDS: HUMALOG SUBQ SCH ×4 (07:02→21:48)
[2019-03-19 07:22] LABS: ESTIMATED GFR > 60
[2019-03-19 07:25] LABS: AGAP 10; ALB/GLOB RATIO 0.8; ALKALINE PHOSPHATASE 138 U/L (32-104); BUN 11 mg/dL (8-22); CALCIUM 9.2 mg/dL (8.8-10.2); CHLORIDE 88 mmol/L (98-107); COSMO 271; CREATININE 0.7 mg/dL (0.5-0.9); GLUCOSE 164 mg/dL (70-104); GOT 19 U/L (10-30); GPT 27 U/L (10-36); MAGNESIUM 1.6 mg/dL (1.5-2.7); POTASSIUM 3.7 mmol/L (3.5-5.1); SODIUM 134 mmol/L (136-145); TCO2 36 mmol/L (25-35); TOTAL BILIRUBIN 1.19 mg/dL (0.20-1.00)
--- NOTE | 2019-03-19 11:01 | PROGRESS NOTE ---
DATE: 03/19/2019 SUBJECTIVE: This morning Ms. Flores refers to be doing well. She has not vomited since admission. She just feels nauseated and she has not had any diarrhea. OBJECTIVE: Vital signs: Blood pressure is 181/92, pulse of 97, respirations 18, temperature 98.3 degrees. General: Ms. Flores is a 63-year-old, morbidly obese, female. She is in bed. She does not seem to be in any distress, but she is on baseline oxygen. Neck: Supple. No JVD. Chest: Good air entry bilateral. I did not hear any crackles or rhonchi. Cardiovascular: Regular rate and rhythm. Abdomen: Soft, distended but nontender. Bowel sounds present, slightly hyperactive. Otherwise no hepatosplenomegaly. Extremities: No pedal edema. Central nervous system: Patient is awake, alert, and oriented. LABORATORY DATA: Has been reviewed. WBC has normalized. Hemoglobin and platelet counts are within normal range. Sodium is 134, chloride is 88, bicarb is 26. IMAGING STUDIES: From yesterday, a CT scan of the abdomen and pelvis did show cardiomegaly with pulmonary edema, some fatty infiltration of the liver, atherosclerosis, hysterectomy, and likely enteritis. ASSESSMENT: 1. Intractable nausea and vomiting on presentation, seems to be improved. 2. Suspected viral gastroenteritis. 3. History of chronic obstructive pulmonary disease with chronic hypoxemia, on supplemental oxygen at home. 4. Obstructive sleep apnea. 5. Diabetes mellitus, controlled. 6. Severe pulmonary hypertension. PLAN: In general, I think Ms. Flores is doing a lot better. Nausea and vomiting seems to be improving. We are going to start her on a GI soft diet today. Continue with the gentle IV fluids and re-evaluate her later on today. I think if Ms. Flores is tolerating her p.o. diet, she might potentially be a discharge for later today. cc: Bereket Gan MD [facility] SYSTEMMikayla
[2019-03-19] MEDS: NEURONTIN PO SCH ×3 (11:10→21:48)
[2019-03-19] MEDS: ELAVIL PO SCH (11:10)
[2019-03-20] MEDS: DUONEB (A & A) INH SCH ×2 (03:48→08:22)
[2019-03-20] MEDS: HUMALOG SUBQ SCH ×2 (06:41→11:36)
[2019-03-20] MEDS: NS 1,000 ML IV SCH (06:50)
[2019-03-20 07:35] VITALS: BP 154/72
[2019-03-20] MEDS: NEURONTIN PO SCH (08:57)
[2019-03-20] MEDS: ELAVIL PO SCH (08:57)
[2019-03-20] MEDS: HYZAAR 50/12.5 MG PO SCH (08:57)
--- NOTE | 2019-03-21 07:52 | DISCHARGE SUMMARY ---
ADMISSION DATE: 03/18/2019 DISCHARGE DATE: 03/20/2019 DISPOSITION: Home. FOLLOWUP: 1. Dr. Lorenzo. 2. Ms Barros CONSULTATION DURING THIS ADMISSION: None. IMAGING STUDIES OF SIGNIFICANCE: A CT scan of the abdomen showed cardiomegaly with pulmonary edema, fatty infiltration of the liver, prominent atherosclerosis, hysterectomy and likely enteritis. ADMISSION DIAGNOSES: 1. Gastroenteritis. 2. Chronic obstructive pulmonary disease exacerbation. 3. Obstructive sleep apnea. 4. Gastroesophageal reflux. DIAGNOSIS AT THE TIME OF DISCHARGE: 1. Intractable nausea and vomiting on presentation, improved. 2. Suspected viral gastroenteritis improved. 3. History of chronic obstructive pulmonary disease with chronic hypoxemia on supplemental oxygen at home. 4. Obstructive sleep apnea. 5. Diabetes mellitus. 6. Severe pulmonary hypertension with pulmonary artery systolic pressure of 84 on echo dated 07/09/2018. PRESENTING COMPLAINT: Intractable nausea, vomiting and diarrhea. HISTORY OF PRESENTING COMPLAINT: Ms. Flores is a 63-year-old female who is known to have COPD on home 2 oxygen, just recently got discharged from the hospital because of COPD exacerbation. She said upon reaching home she found out that everybody at home was some sick with vomiting and diarrhea. Two days later she also started having the same complaints, came to the emergency department, was found to be slightly dehydrated, was admitted for further medical care. HOSPITAL COURSE: Ms. Flores was admitted to the medical floor. She was kept n.p.o. initially and adequately hydrated. Subsequently, she started feeling better, so she was started back on GI soft. During the hospital course, she did not have any bowel movement and because of that stool study that was ordered was not able to be done. Today she has been able to eat well. She denies any more nauseation or vomiting. We think Ms. Flores is medically stable for discharge. She has been advised to keep very clean and hygienic practices at home, especially since everybody at home is having the same, what appears to be gastroenteritis issues. All the discharge instructions have been discussed with her. She voices understanding. At the time of the discharge her vitals, blood pressure is 154/72, pulse of 100, respirations 16, temperature 98.4 degrees. Patient is saturating 99% on room air. TIME SPENT: The time spent for discharge is 37 minutes. cc: Bereket K. QuanMD Ms. Sheron aguilar MD [facility]ITALMikayla
== END 2019-03-20 11:53 | disposition home health service (06) ==
LOC: SUPCPDRO → ED 10:22 → 4N 10:22
PROVIDERS: ATTEND Internal Medicine